=== PATIENT | male | born 1975 | race Caucasian/White ===

== ENCOUNTER 2017-09-18 12:11 | Emergency (ER) | payer MEDICAID, OTHER ==
[~2017-09-18] VITALS: Ht 172.7 cm; Wt 100.0 kg
[2017-09-18] MEDS ORDERED: silver nitrate applicator stick TP ONE (12:55)
[2017-09-18] MEDS ORDERED: oxymetazoline 15 ML nasal spray NS ONE (12:55)
[2017-09-18 13:58] LABS: BASOPHILS % (AUTO) 0.3 % (0-1); EOSINOPHILS # (AUTO) 0.2 X10'3 (0-0.9); HEMATOCRIT 28.2 % (42.0-52.0); HEMOGLOBIN 9.6 g/dl (14.0-17.9); LYMPHOCYTES # (AUTO) 0.7 X10'3 (1.1-4.8); LYMPHOCYTES % (AUTO) 13.5 % (21-51); MEAN CORPUSCULAR HEMOGLOBIN 31.3 PG (27.0-31.0); MEAN CORPUSCULAR HGB CONC 34.3 % (33.0-36.5); MEAN CORPUSCULAR VOLUME 91.3 FL (78-98); MEAN PLATELET VOLUME 6.7 FL (7.4-10.4); MONOCYTES # (AUTO) 0.3 X10'3 (0-0.9); NEUTROPHILS % (AUTO) 77.2 % (42-75); PLATELET COUNT 307 X10'3 (140-440); RED BLOOD COUNT 3.08 X10'6 (4.70-6.10); RED CELL DISTRIBUTION WIDTH 13.9 % (11.5-14.5); WHITE BLOOD COUNT 5.2 X10'3 (4.5-11.0)
[2017-09-18 14:12] LABS: ALANINE AMINOTRANSFERASE 34 U/L (12-78); ALBUMIN 3.8 G/DL (3.4-5.0); ALBUMIN/GLOBULIN RATIO 1.1 (1.1-1.5); ALKALINE PHOSPHATASE 56 IU/L (46-116); ANION GAP 10 (8-16); ASPARTATE AMINO TRANSFERASE 19 U/L (10-37); BILIRUBIN,TOTAL 0.4 MG/DL (0.1-1.0); BLOOD UREA NITROGEN 14 MG/DL (7-18); BUN/CREATININE RATIO 13.5 (5.4-32.0); CALCIUM 9.1 MG/DL (8.5-10.1); CHLORIDE 102 MMOL/L (99-107); CREATININE 1.04 MG/DL (0.60-1.10); GLUCOSE 233 MG/DL (70-104); POTASSIUM 4.2 MMOL/L (3.5-5.1); SODIUM 139 MMOL/L (135-145); TOTAL CARBON DIOXIDE 26.6 MMOL/L (24-32); TOTAL PROTEIN 7.4 G/DL (6.4-8.2); eGFR 78 ML/MIN
[2017-09-18 14:46] VITALS: BP 134/84
== END 2017-09-18 14:47 | disposition home or self-care (01) ==
LOC: ER 12:12
DX: R04.0 Epistaxis (principal)
CPT/HCPCS: 36415; 80053; 85025; 99284

== ENCOUNTER 2023-01-05 18:06 | Emergency (ER) | payer BC, MEDICAID, OTHER ==
[~2023-01-05] VITALS: Ht 170.2 cm; Wt 67.8 kg
[2023-01-05 19:05] VITALS: TEMP 98.4
[2023-01-05] MEDS ORDERED: normal saline 1000ML IV soln IV ONE (19:35)
[2023-01-05 20:24] LABS: BASOPHILS % (AUTO) 0.4 % (0-1); EOSINOPHILS # (AUTO) 0.1 X10'3 (0-0.9); EOSINOPHILS % (AUTO) 1.2 % (0-6); HEMATOCRIT 50.8 % (42.0-52.0); HEMOGLOBIN 17.1 g/dl (14.0-17.9); LYMPHOCYTES # (AUTO) 1.6 X10'3 (1.1-4.8); LYMPHOCYTES % (AUTO) 25.7 % (21-51); MEAN CORPUSCULAR HEMOGLOBIN 31.3 PG (27.0-31.0); MEAN CORPUSCULAR HGB CONC 33.7 g/dL (33.0-36.5); MEAN PLATELET VOLUME 7.4 FL (7.4-10.4); MONOCYTES # (AUTO) 0.3 X10'3 (0-0.9); MONOCYTES % (AUTO) 4.9 % (2-12); NEUTROPHILS # (AUTO) 4.1 X10'3 (1.8-7.7); NEUTROPHILS % (AUTO) 67.8 % (42-75); PLATELET COUNT 264 X10'3 (140-440); RED BLOOD COUNT 5.46 X10'6 (4.70-6.10); RED CELL DISTRIBUTION WIDTH 13.4 % (11.5-14.5); WHITE BLOOD COUNT 6.1 X10'3 (4.5-11.0)
[2023-01-05 20:37] LABS: ALANINE AMINOTRANSFERASE 32 U/L (12-78); ALBUMIN 4.1 G/DL (3.4-5.0); ALBUMIN/GLOBULIN RATIO 1.1 (1.1-1.5); ALKALINE PHOSPHATASE 78 IU/L (46-116); ANION GAP 16 (8-16); ASPARTATE AMINO TRANSFERASE 17 U/L (10-37); BILIRUBIN,TOTAL 0.7 MG/DL (0.1-1.0); BLOOD UREA NITROGEN 21 MG/DL (7-18); BUN/CREATININE RATIO 18.6 (10.0-20.0); CALCIUM 9.7 MG/DL (8.5-10.1); CHLORIDE 95 MMOL/L (99-107); CREATININE 1.13 MG/DL (0.60-1.10); GLUCOSE 393 MG/DL (70-104); LIPASE 937 U/L (73-393); POTASSIUM 4.6 MMOL/L (3.5-5.1); SODIUM 133 MMOL/L (135-145); TOTAL CARBON DIOXIDE 21.7 MMOL/L (24-32); eCRCL 75 ML/MIN; eGFR 69 ML/MIN
[2023-01-05 20:50] LABS: BILIRUBIN,URINE NEGATIVE (Neg); CLARITY,URINE CLEAR (Clear); COLOR,URINE YELLOW (Yellow); GLUCOSE, URINE >=1000 mg/dl (Neg); KETONES,URINE >=80 mg/dl (Neg); LEUKOCYTE ESTERASE ,URINE NEGATIVE (Neg); NITRITES, URINE NEGATIVE (Neg); OCCULT BLOOD,URINE NEGATIVE (Neg); PH,URINE 5.5 (4.8-8.0); PROTEIN,URINE NEGATIVE (Neg); UROBILINOGEN,URINE 0.2 E.U/dL (0.2-1.0)
[2023-01-05 20:56] LABS: UA COLLECTION TYPE CLN CATCH MIDSTREAM
[2023-01-05 20:57] LABS: BACTERIA,URINE NONE SEEN /HPF (Neg); RBC,URINE 0-2 /HPF (0-2); SQUAMOUS EPITHELIAL CELL,UR FEW /LPF (FEW); WBC,URINE 0-4 /HPF (0-4)
[2023-01-05] MEDS ORDERED: METF-438 PO (21:44)
[2023-01-05 21:57] VITALS: BP 122/86; PULSE 86; RESP 18; O2SAT 100
== END 2023-01-05 21:58 | disposition home or self-care (01) ==
LOC: ER 18:07
DX: E11.65 Type 2 diabetes mellitus with hyperglycemia (principal); Z79.899 Other long term (current) drug therapy
CPT/HCPCS: 36415; 80053; 81001; 82948; 83690; 85025; 96360; 99285; J7030

== ENCOUNTER 2023-07-23 16:50 | Inpatient (IN) | payer BC ==
[~2023-07-23] VITALS: Ht 177.8 cm; Wt 54.0 kg
[~2023-07-23 16:50] MED LIST: METF-438 PO
[2023-07-23 17:32] LABS: BASOPHILS % (AUTO) 0.2 % (0-1); EOSINOPHILS % (AUTO) 0 % (0-6); HEMATOCRIT 43.1 % (42.0-52.0); HEMOGLOBIN 13.7 g/dl (14.0-17.9); LYMPHOCYTES # (AUTO) 0.9 X10'3 (1.1-4.8); LYMPHOCYTES % (AUTO) 5.8 % (21-51); MEAN CORPUSCULAR HEMOGLOBIN 32.8 PG (27.0-31.0); MEAN CORPUSCULAR HGB CONC 31.7 g/dL (33.0-36.5); MEAN CORPUSCULAR VOLUME 103.2 FL (78-98); MEAN PLATELET VOLUME 7.7 FL (7.4-10.4); MONOCYTES # (AUTO) 1.2 X10'3 (0-0.9); MONOCYTES % (AUTO) 7.9 % (2-12); NEUTROPHILS # (AUTO) 13.4 X10'3 (1.8-7.7); NEUTROPHILS % (AUTO) 86.1 % (42-75); PLATELET COUNT 297 X10'3 (140-440); RED BLOOD COUNT 4.18 X10'6 (4.70-6.10); RED CELL DISTRIBUTION WIDTH 15.2 % (11.5-14.5); WHITE BLOOD COUNT 15.6 X10'3 (4.5-11.0)
[2023-07-23 18:53] LABS: ALANINE AMINOTRANSFERASE 23 U/L (12-78); ALBUMIN 3.2 G/DL (3.4-5.0); ALBUMIN/GLOBULIN RATIO 0.8 (1.1-1.5); ALKALINE PHOSPHATASE 91 IU/L (46-116); ASPARTATE AMINO TRANSFERASE 19 U/L (10-37); BILIRUBIN,TOTAL 0.5 MG/DL (0.1-1.0); BLOOD UREA NITROGEN 48 MG/DL (7-18); BUN/CREATININE RATIO 28.4 (10.0-20.0); CALCIUM 8.7 MG/DL (8.5-10.1); CHLORIDE 105 MMOL/L (99-107); CREATININE 1.69 MG/DL (0.60-1.10); ETHANOL < 10 MG/DL (<10); POTASSIUM 4.5 MMOL/L (3.5-5.1); SODIUM 144 MMOL/L (135-145); TOTAL PROTEIN 7.4 G/DL (6.4-8.2); eCRCL 40 ML/MIN; eGFR 43 ML/MIN
[2023-07-23] MEDS: normal saline 1000ML IV soln IVB ONE (18:58)
[2023-07-23 19:01] LABS: GLUCOSE 466 MG/DL (70-104)
[2023-07-23 19:04] LABS: ANION GAP 34 (8-16)
[2023-07-23 19:08] LABS: TOTAL CARBON DIOXIDE < 5 MMOL/L (24-32)
[2023-07-23] MEDS ORDERED: Neutra Phos packet PO PRN (19:15)
[2023-07-23] MEDS ORDERED: normal saline 1000ml 1,000 ML IV SCH (19:15)
[2023-07-23] MEDS ORDERED: insulin regular, human U-100 3ml vial - multi-dose IV PRN (19:15)
[2023-07-23] MEDS ORDERED: potassium CL 20mEq in D5-1/2NS 1,000 ML IV PRN (19:15)
[2023-07-23] MEDS ORDERED: sodium bicarbonate (8.4%) inj. 100 MEQ in dextrose 5% water 500ml 500 ML IV PRN (19:15)
[2023-07-23] MEDS ORDERED: potassium Cl 20 mEq SR tablet PO PRN ×3 (19:15→19:40)
[2023-07-23] MEDS ORDERED: potassium Cl 40MEQ/1/2NS 520ml 520 ML IV PRN ×3 (19:15→19:40)
[2023-07-23] MEDS ORDERED: sodium bicarbonate (8.4%) inj. 50 MEQ in dextrose 5% water 500ml 250 ML IV PRN ×2 (19:15→19:40)
[2023-07-23] MEDS ORDERED: sodium phosphate inj. 15 MMOL in dextrose 5%-water 250 ML IV PRN (19:15)
[2023-07-23] MEDS ORDERED: insulin regular, human 10 units/0.1 ml syringe IV PRN (19:25)
[2023-07-23] MEDS: thiamine 100mg/ml 2ml inj. IV ONE (19:35)
[2023-07-23] MEDS ORDERED: acetaminophen 325mg tablet PO PRN ×2 (19:35)
[2023-07-23] MEDS ORDERED: ondansetron/PF 4mg/2ml inj IV PRN (19:35)
[2023-07-23] MEDS: normal saline 1000ml 1,000 ML IV SCH ×2 (19:35→20:03)
[2023-07-23] MEDS: insulin regular, human 10 units/0.1 ml syringe IV ONE ×2 (19:36→21:16)
[2023-07-23] MEDS: Insulin Reg/NS 100units/100mL 100 ML IV SCH ×2 (19:37→21:14)
[2023-07-23 19:57] LABS: ABG BASE EXCESS -29.7 mmol/L (-2.0-2.0); ABG HCO3 2.5 mmol/L (22.0-26.0); ABG OXYGEN SATURATION 96.3 % (94-97); ABG PCO2 (T) 13.6 mmHg (35.0-48.0); ABG PH (T) 6.876 (7.340-7.440); ABG PO2 (T) 133.9 mmHg (75.0-100.0); FCOHb 0.3 % (0.0-3.9); FHHb 3.7 % (0.0-5.0); FMetHb 0.1 % (0.0-1.5); FO2Hb 95.9 % (94-97); MODE ROOM AIR; PATIENT TEMPERATURE 36.9; TOTAL HEMOGLOBIN 14.8 G/dl (14.0-17.9)
[2023-07-23] MEDS ORDERED: K and/or MAG REPLACEMENT MC SCH (20:00)
[2023-07-23] MEDS: K and/or MAG REPLACEMENT MC SCH (20:00)
[2023-07-23 20:07] LABS: ALBUMIN 3.4 G/DL (3.4-5.0); BLOOD UREA NITROGEN 51 MG/DL (7-18); BUN/CREATININE RATIO 29.5 (10.0-20.0); CALCIUM 8.7 MG/DL (8.5-10.1); CHLORIDE 106 MMOL/L (99-107); CREATININE 1.73 MG/DL (0.60-1.10); PHOSPHORUS 8.9 MG/DL (2.3-4.5); POTASSIUM 4.5 MMOL/L (3.5-5.1); SODIUM 145 MMOL/L (135-145); eCRCL 39 ML/MIN; eGFR 42 ML/MIN
[2023-07-23 20:13] LABS: ANION GAP 34 (8-16)
[2023-07-23 20:16] LABS: GLUCOSE 471 MG/DL (70-104); TOTAL CARBON DIOXIDE < 5 MMOL/L (24-32)
[2023-07-23] MEDS: insulin regular, human U-100 3ml vial - multi-dose IV PRN (21:16)
[2023-07-23 23:25] LABS: BILIRUBIN,URINE NEGATIVE (Neg); CLARITY,URINE CLEAR (Clear); COLOR,URINE YELLOW (Yellow); GLUCOSE, URINE >=1000 mg/dl (Neg); KETONES,URINE >=80 mg/dl (Neg); LEUKOCYTE ESTERASE ,URINE NEGATIVE (Neg); NITRITES, URINE NEGATIVE (Neg); OCCULT BLOOD,URINE MODERATE (Neg); PH,URINE 5.5 (4.8-8.0); PROTEIN,URINE 30 mg/dl (Neg); UROBILINOGEN,URINE 0.2 E.U/dL (0.2-1.0)
[2023-07-23 23:27] LABS: ALBUMIN 3.4 G/DL (3.4-5.0); BLOOD UREA NITROGEN 50 MG/DL (7-18); BUN/CREATININE RATIO 29.1 (10.0-20.0); CALCIUM 8.8 MG/DL (8.5-10.1); CHLORIDE 108 MMOL/L (99-107); CREATININE 1.72 MG/DL (0.60-1.10); GLUCOSE 369 MG/DL (70-104); POTASSIUM 3.6 MMOL/L (3.5-5.1); SODIUM 148 MMOL/L (135-145); eCRCL 40 ML/MIN; eGFR 42 ML/MIN
[2023-07-23 23:30] LABS: UA COLLECTION TYPE CLN CATCH MIDSTREAM
[2023-07-23 23:32] LABS: COARSE GRANULAR CAST 0-3 /LPF (NEGATIVE); MUCUS STRANDS NONE SEEN /LPF (Neg); SQUAMOUS EPITHELIAL CELL,UR NONE SEEN /LPF (FEW)
[2023-07-23 23:34] LABS: BACTERIA,URINE FEW /HPF (Neg); RBC,URINE 0-2 /HPF (0-2); WBC,URINE 0-4 /HPF (0-4)
[2023-07-23 23:34] LABS: ANION GAP 35 (8-16)
[2023-07-23 23:41] LABS: URINE AMPHETAMINE SCREEN NEGATIVE (Neg); URINE BARBITUATE SCREEN NEGATIVE (Neg); URINE BENZODIAZEPINES SCREEN NEGATIVE (Neg); URINE CANNABINOID SCREEN NEGATIVE (Neg); URINE COCAINE SCREEN NEGATIVE (Neg); URINE METHADONE SCREEN NEGATIVE (Neg); URINE OPIATE SCREEN NEGATIVE (Neg); URINE PHENCYCLIDINE SCREEN NEGATIVE (Neg)
[2023-07-24] MEDS: heparin, porcine 5000 units/ml vial SQ SCH (00:17)
[2023-07-24] MEDS: sodium bicarbonate (8.4%) inj. 100 MEQ in dextrose 5% water 500ml 500 ML IV PRN (00:29)
[2023-07-24] MEDS: dextrose 5%-1/2 normal saline 1,000 ML IV ONE (01:27)
[2023-07-24 02:02] LABS: ABG BASE EXCESS -20.4 mmol/L (-2.0-2.0); ABG HCO3 6.3 mmol/L (22.0-26.0); ABG OXYGEN SATURATION 96.9 % (94-97); ABG PCO2 (T) 18.4 mmHg (35.0-48.0); ABG PH (T) 7.153 (7.340-7.440); ABG PO2 (T) 129.7 mmHg (75.0-100.0); ALLEN'S TEST Modified; FCOHb 0.3 % (0.0-3.9); FHHb 3.1 % (0.0-5.0); FMetHb 0.3 % (0.0-1.5); FO2Hb 96.3 % (94-97); MODE ROOM AIR; TOTAL HEMOGLOBIN 13.8 G/dl (14.0-17.9)
[2023-07-24 02:18] LABS: ANION GAP 29 (8-16); BLOOD UREA NITROGEN 47 MG/DL (7-18); BUN/CREATININE RATIO 29.7 (10.0-20.0); CALCIUM 8.2 MG/DL (8.5-10.1); CHLORIDE 111 MMOL/L (99-107); CREATININE 1.58 MG/DL (0.60-1.10); GLUCOSE 214 MG/DL (70-104); PHOSPHORUS 3.9 MG/DL (2.3-4.5); SODIUM 149 MMOL/L (135-145); eCRCL 43 ML/MIN; eGFR 47 ML/MIN
[2023-07-24 02:24] LABS: POTASSIUM 3.4 MMOL/L (3.5-5.1)
[2023-07-24] MEDS: potassium CL 20mEq in D5-1/2NS 1,000 ML IV PRN (02:39)
[2023-07-24 09:29] LABS: ALANINE AMINOTRANSFERASE 27 U/L (12-78); ALBUMIN 2.9 G/DL (3.4-5.0); ALBUMIN/GLOBULIN RATIO 0.9 (1.1-1.5); ALKALINE PHOSPHATASE 73 IU/L (46-116); ANION GAP 16 (8-16); ASPARTATE AMINO TRANSFERASE 20 U/L (10-37); BILIRUBIN,TOTAL 0.4 MG/DL (0.1-1.0); BLOOD UREA NITROGEN 44 MG/DL (7-18); BUN/CREATININE RATIO 30.8 (10.0-20.0); CALCIUM 8.2 MG/DL (8.5-10.1); CHLORIDE 115 MMOL/L (99-107); CREATININE 1.43 MG/DL (0.60-1.10); GLUCOSE 154 MG/DL (70-104); POTASSIUM 3.2 MMOL/L (3.5-5.1); SODIUM 149 MMOL/L (135-145); TOTAL CARBON DIOXIDE 17.6 MMOL/L (24-32); eCRCL 48 ML/MIN; eGFR 53 ML/MIN
[2023-07-24] MEDS: vancomycin/NS 1 GM ADD-VANTAGE 250 ML IV STA (09:39)
[2023-07-24 13:19] LABS: ALBUMIN 3.1 G/DL (3.4-5.0); ANION GAP 13 (8-16); BLOOD UREA NITROGEN 39 MG/DL (7-18); BUN/CREATININE RATIO 28.7 (10.0-20.0); CALCIUM 8.3 MG/DL (8.5-10.1); CHLORIDE 117 MMOL/L (99-107); CREATININE 1.36 MG/DL (0.60-1.10); GLUCOSE 165 MG/DL (70-104); SODIUM 149 MMOL/L (135-145); TOTAL CARBON DIOXIDE 18.8 MMOL/L (24-32); eCRCL 50 ML/MIN; eGFR 56 ML/MIN
[2023-07-24 13:23] LABS: POTASSIUM 3.5 MMOL/L (3.5-5.1)
[2023-07-24] MEDS ORDERED: SEMA0.258 SQ (14:16)
[2023-07-24] MEDS ORDERED: EMPA25TA PO (14:16)
[2023-07-24 14:34] LABS: HEMOGLOBIN A1C > 12.0 % (4.5-6.2)
[2023-07-24 14:38] LABS: THYROID STIMULATING HORMONE 0.53 ulU/ml (0.34-4.50)
[2023-07-24] MEDS ORDERED: glucagon, human recombinant 1mg kit SUBCUT PRN (18:30)
[2023-07-24] MEDS ORDERED: DEXTROSE 15 GM of carb/4 tabs (each vial/BOTTLE has 4 tablets) PO PRN ×2 (18:30)
[2023-07-24] MEDS ORDERED: dextrose 50%-water 50ml dispensing syringe IV PRN ×2 (18:30)
[2023-07-24] MEDS: MESSAGE TO PHARMACY PO ONE (18:47)
[2023-07-24 19:32] LABS: ALBUMIN 2.6 G/DL (3.4-5.0); ANION GAP 10 (8-16); BLOOD UREA NITROGEN 29 MG/DL (7-18); BUN/CREATININE RATIO 24.6 (10.0-20.0); CALCIUM 7.4 MG/DL (8.5-10.1); CHLORIDE 113 MMOL/L (99-107); CREATININE 1.18 MG/DL (0.60-1.10); GLUCOSE 221 MG/DL (70-104); PHOSPHORUS 1.3 MG/DL (2.3-4.5); POTASSIUM 3.7 MMOL/L (3.5-5.1); SODIUM 147 MMOL/L (135-145); TOTAL CARBON DIOXIDE 23.7 MMOL/L (24-32); eCRCL 58 ML/MIN; eGFR 66 ML/MIN
[2023-07-24] MEDS: insulin glargine (Lantus) pen - multi-dose SQ SCH (19:40)
[2023-07-24] MEDS: sodium phosphate inj. 30 MMOL in dextrose 5%-water 250 ML IV PRN (20:19)
[2023-07-24 22:40] VITALS: BP 105/67; PULSE 92; RESP 16; TEMP 98; O2SAT 99
[2023-07-24 23:40] VITALS: RESP 16; O2SAT 96
[2023-07-25] VITALS (7 sets, daily range): BP systolic 92–120; BP diastolic 58–71; PULSE 65–109; RESP 10–20; TEMP 97–98.9; O2SAT 91–100
[2023-07-25] MEDS: sodium chloride 0.45% 1,000 ML IV SCH (04:37)
[2023-07-25 06:14] LABS: BASOPHILS % (AUTO) 0.2 % (0-1); EOSINOPHILS % (AUTO) 0 % (0-6); HEMATOCRIT 36.7 % (42.0-52.0); HEMOGLOBIN 12.6 g/dl (14.0-17.9); LYMPHOCYTES # (AUTO) 0.6 X10'3 (1.1-4.8); LYMPHOCYTES % (AUTO) 5.2 % (21-51); MEAN CORPUSCULAR HEMOGLOBIN 32.7 PG (27.0-31.0); MEAN CORPUSCULAR HGB CONC 34.3 g/dL (33.0-36.5); MEAN CORPUSCULAR VOLUME 95.3 FL (78-98); MEAN PLATELET VOLUME 6.9 FL (7.4-10.4); MONOCYTES # (AUTO) 0.6 X10'3 (0-0.9); MONOCYTES % (AUTO) 5.2 % (2-12); NEUTROPHILS # (AUTO) 10.9 X10'3 (1.8-7.7); NEUTROPHILS % (AUTO) 89.4 % (42-75); PLATELET COUNT 130 X10'3 (140-440); RED BLOOD COUNT 3.85 X10'6 (4.70-6.10); RED CELL DISTRIBUTION WIDTH 14.6 % (11.5-14.5); WHITE BLOOD COUNT 12.1 X10'3 (4.5-11.0)
[2023-07-25 08:57] LABS: ALANINE AMINOTRANSFERASE 21 U/L (12-78); ALBUMIN 2.9 G/DL (3.4-5.0); ALKALINE PHOSPHATASE 69 IU/L (46-116); ANION GAP 11 (8-16); ASPARTATE AMINO TRANSFERASE 16 U/L (10-37); BILIRUBIN,TOTAL 0.3 MG/DL (0.1-1.0); BLOOD UREA NITROGEN 18 MG/DL (7-18); BUN/CREATININE RATIO 22.5 (10.0-20.0); CALCIUM 7.9 MG/DL (8.5-10.1); CHLORIDE 112 MMOL/L (99-107); GLUCOSE 79 MG/DL (70-104); SODIUM 148 MMOL/L (135-145); TOTAL CARBON DIOXIDE 25.2 MMOL/L (24-32); TOTAL PROTEIN 5.8 G/DL (6.4-8.2); eCRCL 85 ML/MIN; eGFR > 90 ML/MIN
[2023-07-25 08:58] LABS: POTASSIUM 2.3 MMOL/L (3.5-5.1)
[2023-07-25] MEDS ORDERED: Potassium Cl inj 20 MEQ in dextrose 5%-water 990 ML IV SCH (09:25)
[2023-07-25] MEDS: vancomycin/NS 1 GM ADD-VANTAGE 250 ML IV SCH ×2 (10:06→20:30)
[2023-07-25] MEDS: potassium Cl 40MEQ/1/2NS 520ml 520 ML IV PRN (10:14)
[2023-07-25] MEDS: CefTRIAXone/D5W-Rocephin 1gm 50 ML IV ONE (12:57)
[2023-07-25] MEDS ORDERED: iohexol 300mg/ml 100ml inj. ONE (15:19)
[2023-07-25] MEDS: POTASSIUM Cl 20eq-D5W 1000mL 1,000 ML IV SCH (17:34)
[2023-07-25] MEDS: MESSAGE TO NURSING PO NR (17:34)
[2023-07-25] MEDS: insulin Lispro (HumaLOG) vial - multi-dose SQ SCH (19:08)
[2023-07-25] MEDS: heparin, porcine 5000 units/ml vial SQ SCH (20:30)
[2023-07-25] MEDS: calcium carbonate 500mg chew tablet PO PRN (21:45)
[2023-07-26] VITALS (8 sets, daily range): BP systolic 90–94; BP diastolic 59–70; PULSE 63–82; RESP 14–20; TEMP 98–98.6; O2SAT 95–99
[2023-07-26 05:54] LABS: BASOPHILS % (AUTO) 0.1 % (0-1); EOSINOPHILS % (AUTO) 0.1 % (0-6); HEMATOCRIT 38.9 % (42.0-52.0); HEMOGLOBIN 13.2 g/dl (14.0-17.9); LYMPHOCYTES % (AUTO) 10.8 % (21-51); MEAN CORPUSCULAR HEMOGLOBIN 32.2 PG (27.0-31.0); MEAN CORPUSCULAR HGB CONC 33.8 g/dL (33.0-36.5); MEAN CORPUSCULAR VOLUME 95.1 FL (78-98); MEAN PLATELET VOLUME 6.3 FL (7.4-10.4); MONOCYTES # (AUTO) 0.4 X10'3 (0-0.9); MONOCYTES % (AUTO) 4.1 % (2-12); NEUTROPHILS # (AUTO) 8.2 X10'3 (1.8-7.7); NEUTROPHILS % (AUTO) 84.9 % (42-75); PLATELET COUNT 114 X10'3 (140-440); RED BLOOD COUNT 4.09 X10'6 (4.70-6.10); RED CELL DISTRIBUTION WIDTH 14.4 % (11.5-14.5); WHITE BLOOD COUNT 9.6 X10'3 (4.5-11.0)
[2023-07-26 06:28] LABS: ALANINE AMINOTRANSFERASE 26 U/L (12-78); ALBUMIN 2.8 G/DL (3.4-5.0); ALKALINE PHOSPHATASE 77 IU/L (46-116); ANION GAP 7 (8-16); ASPARTATE AMINO TRANSFERASE 21 U/L (10-37); BILIRUBIN,TOTAL 0.4 MG/DL (0.1-1.0); BLOOD UREA NITROGEN 13 MG/DL (7-18); BUN/CREATININE RATIO 23.6 (10.0-20.0); CALCIUM 8.4 MG/DL (8.5-10.1); CHLORIDE 108 MMOL/L (99-107); CREATININE 0.55 MG/DL (0.60-1.10); GLUCOSE 149 MG/DL (70-104); PHOSPHORUS 2.5 MG/DL (2.3-4.5); SODIUM 144 MMOL/L (135-145); TOTAL CARBON DIOXIDE 29.3 MMOL/L (24-32); TOTAL PROTEIN 5.7 G/DL (6.4-8.2); eCRCL 124 ML/MIN; eGFR > 90 ML/MIN
[2023-07-26 06:34] LABS: POTASSIUM 2.7 MMOL/L (3.5-5.1)
[2023-07-26 07:18] LABS: HIV ANTIBODY 1&2 RAPID NON-REACTIVE (Neg)
[2023-07-26] MEDS: potassium Cl 20 mEq SR tablet PO PRN ×2 (07:24→20:34)
[2023-07-26] MEDS: CefTRIAXone 2gm/D5W 50ml BAG 50 ML IV SCH (07:27)
[2023-07-26] MEDS ORDERED: CefTRIAXone/D5W-Rocephin 1gm 50 ML IV SCH (08:00)
[2023-07-26] MEDS: pantoprazole 40mg Tablet.DR PO SCH (11:19)
[2023-07-26] MEDS: potassium Cl 20 mEq SR tablet PO SCH (16:48)
[2023-07-26] MEDS ORDERED: GADOTERATE MEGLUMINE 7.5 MMOL/15 ML VIAL IV ONE (19:18)
[2023-07-26] MEDS: VANCOmycin 1250MG/NS 250ml Bag 250 ML IV SCH (20:31)
[2023-07-27] VITALS (8 sets, daily range): BP systolic 89–127; BP diastolic 61–71; PULSE 72–92; RESP 15–20; TEMP 97.3–98.7; O2SAT 94–100
[2023-07-27 06:50] LABS: BASOPHILS % (AUTO) 0 % (0-1); EOSINOPHILS % (AUTO) 0.1 % (0-6); HEMOGLOBIN 11.9 g/dl (14.0-17.9); LYMPHOCYTES # (AUTO) 0.9 X10'3 (1.1-4.8); LYMPHOCYTES % (AUTO) 12.8 % (21-51); MEAN CORPUSCULAR HEMOGLOBIN 32.5 PG (27.0-31.0); MEAN CORPUSCULAR VOLUME 95.7 FL (78-98); MEAN PLATELET VOLUME 6.7 FL (7.4-10.4); MONOCYTES # (AUTO) 0.3 X10'3 (0-0.9); MONOCYTES % (AUTO) 4.1 % (2-12); NEUTROPHILS # (AUTO) 5.6 X10'3 (1.8-7.7); PLATELET COUNT 97 X10'3 (140-440); RED BLOOD COUNT 3.65 X10'6 (4.70-6.10); RED CELL DISTRIBUTION WIDTH 14.1 % (11.5-14.5); WHITE BLOOD COUNT 6.7 X10'3 (4.5-11.0)
[2023-07-27 07:18] LABS: ALANINE AMINOTRANSFERASE 27 U/L (12-78); ALBUMIN 2.5 G/DL (3.4-5.0); ALBUMIN/GLOBULIN RATIO 0.9 (1.1-1.5); ALKALINE PHOSPHATASE 78 IU/L (46-116); ANION GAP 5 (8-16); ASPARTATE AMINO TRANSFERASE 24 U/L (10-37); BILIRUBIN,TOTAL 0.5 MG/DL (0.1-1.0); BLOOD UREA NITROGEN 14 MG/DL (7-18); BUN/CREATININE RATIO 26.9 (10.0-20.0); CHLORIDE 104 MMOL/L (99-107); CREATININE 0.52 MG/DL (0.60-1.10); GLUCOSE 223 MG/DL (70-104); MAGNESIUM 1.8 MG/DL (1.5-2.4); SODIUM 140 MMOL/L (135-145); TOTAL CARBON DIOXIDE 30.9 MMOL/L (24-32); TOTAL PROTEIN 5.3 G/DL (6.4-8.2); eCRCL 131 ML/MIN; eGFR > 90 ML/MIN
[2023-07-27 12:01] LABS: LIPASE 21 U/L (16-77)
[2023-07-27] MEDS: ceFAZolin/D5W- 1GM premix 50 ML IV SCH (15:21)
[2023-07-28] VITALS (9 sets, daily range): BP systolic 90–106; BP diastolic 52–74; PULSE 63–86; RESP 14–21; TEMP 97.3–98; O2SAT 96–100
[2023-07-28 05:47] LABS: BASOPHILS % (AUTO) 0.2 % (0-1); EOSINOPHILS % (AUTO) 0.2 % (0-6); HEMATOCRIT 36.5 % (42.0-52.0); HEMOGLOBIN 12.5 g/dl (14.0-17.9); LYMPHOCYTES % (AUTO) 17.7 % (21-51); MEAN CORPUSCULAR HEMOGLOBIN 32.3 PG (27.0-31.0); MEAN CORPUSCULAR HGB CONC 34.1 g/dL (33.0-36.5); MEAN CORPUSCULAR VOLUME 94.7 FL (78-98); MEAN PLATELET VOLUME 6.7 FL (7.4-10.4); MONOCYTES # (AUTO) 0.4 X10'3 (0-0.9); MONOCYTES % (AUTO) 6.2 % (2-12); NEUTROPHILS # (AUTO) 4.3 X10'3 (1.8-7.7); NEUTROPHILS % (AUTO) 75.7 % (42-75); PLATELET COUNT 111 X10'3 (140-440); RED BLOOD COUNT 3.85 X10'6 (4.70-6.10); RED CELL DISTRIBUTION WIDTH 13.9 % (11.5-14.5); WHITE BLOOD COUNT 5.7 X10'3 (4.5-11.0)
[2023-07-28 06:00] LABS: ALANINE AMINOTRANSFERASE 27 U/L (12-78); ALBUMIN 2.5 G/DL (3.4-5.0); ALBUMIN/GLOBULIN RATIO 0.8 (1.1-1.5); ALKALINE PHOSPHATASE 73 IU/L (46-116); ANION GAP 6 (8-16); ASPARTATE AMINO TRANSFERASE 17 U/L (10-37); BILIRUBIN,TOTAL 0.4 MG/DL (0.1-1.0); BLOOD UREA NITROGEN 18 MG/DL (7-18); BUN/CREATININE RATIO 35.3 (10.0-20.0); CALCIUM 8.7 MG/DL (8.5-10.1); CHLORIDE 103 MMOL/L (99-107); CREATININE 0.51 MG/DL (0.60-1.10); GLUCOSE 86 MG/DL (70-104); MAGNESIUM 2.1 MG/DL (1.5-2.4); SODIUM 140 MMOL/L (135-145); TOTAL CARBON DIOXIDE 30.7 MMOL/L (24-32); TOTAL PROTEIN 5.5 G/DL (6.4-8.2); eCRCL 134 ML/MIN; eGFR > 90 ML/MIN
[2023-07-28] MEDS ORDERED: VANCOMYCIN LEVEL IV ONE (08:30)
[2023-07-28] MEDS: magnesium hydroxide 30ml (MOM) UD suspension PO ONE ×2 (21:43→21:55)
[2023-07-29] VITALS (8 sets, daily range): BP systolic 98–118; BP diastolic 56–84; PULSE 60–95; RESP 15–19; TEMP 97–98.3; O2SAT 91–100
[2023-07-29 05:52] LABS: ALANINE AMINOTRANSFERASE 33 U/L (12-78); ALBUMIN 2.7 G/DL (3.4-5.0); ALBUMIN/GLOBULIN RATIO 0.9 (1.1-1.5); ALKALINE PHOSPHATASE 85 IU/L (46-116); ANION GAP 4 (8-16); ASPARTATE AMINO TRANSFERASE 41 U/L (10-37); BILIRUBIN,TOTAL 0.4 MG/DL (0.1-1.0); BLOOD UREA NITROGEN 21 MG/DL (7-18); BUN/CREATININE RATIO 31.3 (10.0-20.0); CALCIUM 8.3 MG/DL (8.5-10.1); CHLORIDE 101 MMOL/L (99-107); CREATININE 0.67 MG/DL (0.60-1.10); GLUCOSE 228 MG/DL (70-104); MAGNESIUM 2.3 MG/DL (1.5-2.4); POTASSIUM 4.1 MMOL/L (3.5-5.1); SODIUM 139 MMOL/L (135-145); TOTAL CARBON DIOXIDE 33.7 MMOL/L (24-32); TOTAL PROTEIN 5.8 G/DL (6.4-8.2); eCRCL 102 ML/MIN; eGFR > 90 ML/MIN
[2023-07-29 05:58] LABS: BASOPHILS % (AUTO) 0.1 % (0-1); EOSINOPHILS % (AUTO) 0.5 % (0-6); HEMOGLOBIN 13.2 g/dl (14.0-17.9); LYMPHOCYTES # (AUTO) 1.2 X10'3 (1.1-4.8); LYMPHOCYTES % (AUTO) 27.8 % (21-51); MEAN CORPUSCULAR HEMOGLOBIN 32.6 PG (27.0-31.0); MEAN CORPUSCULAR HGB CONC 33.8 g/dL (33.0-36.5); MEAN CORPUSCULAR VOLUME 96.4 FL (78-98); MEAN PLATELET VOLUME 7.2 FL (7.4-10.4); MONOCYTES # (AUTO) 0.5 X10'3 (0-0.9); MONOCYTES % (AUTO) 12.2 % (2-12); NEUTROPHILS # (AUTO) 2.5 X10'3 (1.8-7.7); NEUTROPHILS % (AUTO) 59.4 % (42-75); PLATELET COUNT 139 X10'3 (140-440); RED BLOOD COUNT 4.05 X10'6 (4.70-6.10); WHITE BLOOD COUNT 4.2 X10'3 (4.5-11.0)
[2023-07-29 10:04] LABS: AFP,SERUM, TUMOR MARKER <1.8 ng/mL (0.0-6.9); CARBOHYDRATE ANTIGEN 19-9 2638 U/mL (0-35); CARCINOEMBRYONIC ANTIGEN 24.5 ng/mL (0.0-4.7); HBSAG SCREEN Negative (Negative); HEP A AB, IGM Negative (Negative); HEP B CORE AB, IGM Negative (Negative); HEPATITIS C VIRUS ANTIBODY Non Reactive (Non Reactive)
[2023-07-29] MEDS ORDERED: NEED-136 SUBCUT (13:28)
[2023-07-29] MEDS ORDERED: INSU100I52 SQ (13:28)
[2023-07-29] MEDS ORDERED: INSU300I3 SQ (13:28)
[2023-07-29] MEDS: magnesium hydroxide 30ml (MOM) UD suspension PO PRN (17:53)
[2023-07-30 08:00] VITALS: RESP 22; O2SAT 97
== END 2023-07-30 12:30 | disposition home or self-care (01) | DRG 871 ==
LOC: ER 16:51 → ED HOLD 19:38 → EDBEDREQ 07-24 21:36 → EDBEDREQSVC 07-24 21:36 → PCU 3S 07-24 22:41
PROVIDERS: ADMIT Internal Medicine Critical Care Medicine; ATTEND Internal Medicine Critical Care Medicine
PROC: BW251ZZ Computerized Tomography (CT Scan) of Chest, Abdomen and Pelvis using Low Osmolar Contrast (ICD-10-PCS; principal; 2023-07-25)
PROC: 05HB33Z Insertion of Infusion Device into Right Basilic Vein, Percutaneous Approach (ICD-10-PCS; 2023-07-30)
DX: A41.01 Sepsis due to Methicillin susceptible Staphylococcus aureus (principal); E11.00 Type 2 diabetes mellitus with hyperosmolarity without nonketotic hyperglycemic-hyperosmolar coma (NKHHC); E11.10 Type 2 diabetes mellitus with ketoacidosis without coma; G93.41 Metabolic encephalopathy; N17.0 Acute kidney failure with tubular necrosis; R65.21 Severe sepsis with septic shock; E87.1 Hypo-osmolality and hyponatremia; E44.1 Mild protein-calorie malnutrition; Z68.1 Body mass index [BMI] 19.9 or less, adult; E87.8 Other disorders of electrolyte and fluid balance, not elsewhere classified; E87.6 Hypokalemia; D53.9 Nutritional anemia, unspecified; N18.30 Chronic kidney disease, stage 3 unspecified; K86.89 Other specified diseases of pancreas; G89.29 Other chronic pain; E11.22 Type 2 diabetes mellitus with diabetic chronic kidney disease; Z79.84 Long term (current) use of oral hypoglycemic drugs
CPT/HCPCS: 36410; 36415; 36600; 70450; 71045; 71260; 74177; 74183; 76942; 80048; 80053; 80074; 80305; 80320; 81001; 82103; 82140; 82378; 82607; 82803; 82948; 83036; 83605; 83690; 83735; 84100; 84145; 84443; 84484; 85018; 85025; 86301; 86304; 86592; 86703; 87040; 87077; 87081; 87186; 93005; 93306; 97116; 97161; 97530; 99285; A4349; A9575; C1751; G0378; J0690; J0696; J1644; J1815; J3370; J3411; J3480; J3490; J7030; J7040; J7060; Q9967

== ENCOUNTER 2023-11-09 15:16 | Emergency (ER) | payer BC ==
[~2023-11-09] VITALS: Ht 167.6 cm; Wt 68.2 kg
[~2023-11-09 15:16] MED LIST changes: +EMPA25TA PO; +INSU100I52 SQ; +INSU300I3 SQ; -METF-438 PO; +NEED-136 SUBCUT; +SEMA0.258 SQ
[2023-11-09 18:00] VITALS: TEMP 98.2
[2023-11-09] MEDS: normal saline 1000ml 1,000 ML IVB ONE ×2 (18:14→19:39)
[2023-11-09 18:33] LABS: BASOPHILS % (AUTO) 0.1 % (0-1); EOSINOPHILS % (AUTO) 0.1 % (0-6); HEMATOCRIT 40.8 % (42.0-52.0); HEMOGLOBIN 13.6 g/dl (14.0-17.9); LYMPHOCYTES # (AUTO) 0.3 X10'3 (1.1-4.8); LYMPHOCYTES % (AUTO) 5.9 % (21-51); MEAN CORPUSCULAR HEMOGLOBIN 30.8 PG (27.0-31.0); MEAN CORPUSCULAR HGB CONC 33.3 g/dL (33.0-36.5); MEAN CORPUSCULAR VOLUME 92.3 FL (78-98); MEAN PLATELET VOLUME 6.8 FL (7.4-10.4); MONOCYTES # (AUTO) 0.2 X10'3 (0-0.9); MONOCYTES % (AUTO) 4.1 % (2-12); NEUTROPHILS # (AUTO) 4.3 X10'3 (1.8-7.7); NEUTROPHILS % (AUTO) 89.8 % (42-75); PLATELET COUNT 159 X10'3 (140-440); RED BLOOD COUNT 4.41 X10'6 (4.70-6.10); WHITE BLOOD COUNT 4.8 X10'3 (4.5-11.0)
[2023-11-09 18:50] LABS: ALANINE AMINOTRANSFERASE 25 U/L (12-78); ALBUMIN 3.4 G/DL (3.4-5.0); ALBUMIN/GLOBULIN RATIO 0.9 (1.1-1.5); ALKALINE PHOSPHATASE 437 IU/L (46-116); ANION GAP 6 (8-16); ASPARTATE AMINO TRANSFERASE 17 U/L (10-37); BILIRUBIN,TOTAL 0.7 MG/DL (0.1-1.0); BLOOD UREA NITROGEN 15 MG/DL (7-18); BUN/CREATININE RATIO 13.8 (10.0-20.0); CALCIUM 8.4 MG/DL (8.5-10.1); CHLORIDE 105 MMOL/L (99-107); CREATININE 1.09 MG/DL (0.60-1.10); GLUCOSE 83 MG/DL (70-104); PRO BRAIN NATRIURETIC PEPTIDE 263 PG/ML (0-125); SODIUM 138 MMOL/L (135-145); TOTAL CARBON DIOXIDE 26.9 MMOL/L (24-32); TOTAL PROTEIN 7.1 G/DL (6.4-8.2); eCRCL 74 ML/MIN; eGFR 72 ML/MIN
[2023-11-09 21:08] LABS: MAGNESIUM 1.8 MG/DL (1.5-2.4)
[2023-11-09 23:30] VITALS: BP 116/74; PULSE 73; RESP 18; O2SAT 99
== END 2023-11-09 23:35 | disposition home or self-care (01) ==
LOC: ER 15:17
DX: K52.9 Noninfective gastroenteritis and colitis, unspecified (principal); E86.0 Dehydration; M79.604 Pain in right leg; E11.9 Type 2 diabetes mellitus without complications; Z79.899 Other long term (current) drug therapy; Z79.4 Long term (current) use of insulin
CPT/HCPCS: 36415; 71045; 73590; 80053; 82948; 83605; 83735; 83880; 84484; 85025; 93005; 93970; 96360; 96361; 99285; J7030

== ENCOUNTER 2024-02-26 00:27 | Emergency (ER) | payer BC ==
[~2024-02-26] VITALS: Ht 167.6 cm; Wt 63.7 kg
[2024-02-26 00:32] VITALS: TEMP 98.3
[2024-02-26] MEDS ORDERED: iohexol 300mg/ml 100ml inj. ONE (02:11)
[2024-02-26 02:15] LABS: ALBUMIN 2.7 G/DL (3.4-5.0); ANION GAP 6 (8-16); BLOOD UREA NITROGEN 13 MG/DL (7-18); BUN/CREATININE RATIO 14.3 (10.0-20.0); CALCIUM 8.2 MG/DL (8.5-10.1); CHLORIDE 103 MMOL/L (99-107); CREATININE 0.91 MG/DL (0.60-1.10); GLUCOSE 157 MG/DL (70-104); MAGNESIUM 1.8 MG/DL (1.5-2.4); POTASSIUM 3.7 MMOL/L (3.5-5.1); SODIUM 139 MMOL/L (135-145); TOTAL CARBON DIOXIDE 30.3 MMOL/L (24-32); eCRCL 88 ML/MIN; eGFR 88 ML/MIN
[2024-02-26 02:20] LABS: LYMPHOCYTES # (AUTO) 0.6 X10'3 (1.1-4.8); MONOCYTES # (AUTO) 0.5 X10'3 (0-0.9); NEUTROPHILS # (AUTO) 1.4 X10'3 (1.8-7.7); PLATELET COUNT 64 X10'3 (140-440); WHITE BLOOD COUNT 2.5 X10'3 (4.5-11.0)
[2024-02-26 02:22] LABS: BASOPHILS % (AUTO) 0.3 % (0-1); EOSINOPHILS % (AUTO) 1.5 % (0-6); HEMATOCRIT 30.3 % (42.0-52.0); HEMOGLOBIN 9.8 g/dl (14.0-17.9); LYMPHOCYTES % (AUTO) 23.2 % (21-51); MEAN CORPUSCULAR HGB CONC 32.2 g/dL (33.0-36.5); MEAN CORPUSCULAR VOLUME 90.2 FL (78-98); MEAN PLATELET VOLUME 7.7 FL (7.4-10.4); RED BLOOD COUNT 3.37 X10'6 (4.70-6.10); RED CELL DISTRIBUTION WIDTH 16.5 % (11.5-14.5)
[2024-02-26] MEDS: ketorolac trometh 15mg/ml vial 15 MG/ML ML IV ONE (02:30)
[2024-02-26] MEDS: acetaminophen 325mg tablet PO ONE ×2 (02:31→05:00)
[2024-02-26 03:21] LABS: TOTAL CELLS COUNTED 100
[2024-02-26 03:22] LABS: ANISOCYTOSIS 1+; PLATELET ESTIMATE DECREASED
[2024-02-26] MEDS ORDERED: HYDR-3965 PO (04:27)
[2024-02-26 05:04] VITALS: BP 97/55; PULSE 78; RESP 15; O2SAT 100
== END 2024-02-26 05:07 | disposition home or self-care (01) ==
LOC: ER 00:28
DX: R22.41 Localized swelling, mass and lump, right lower limb (principal)
CPT/HCPCS: 36415; 73701; 80048; 83735; 84145; 85007; 85025; 96374; 99285; J1885; Q9967

== ENCOUNTER 2024-04-03 11:00 | Emergency (ER) | payer BC ==
[~2024-04-03] VITALS: Ht 165.1 cm; Wt 59.1 kg
[2024-04-03 14:53] LABS: BASOPHILS % (AUTO) 0.2 % (0-1); EOSINOPHILS % (AUTO) 0.3 % (0-6); HEMATOCRIT 34.6 % (42.0-52.0); HEMOGLOBIN 11.2 g/dl (14.0-17.9); LYMPHOCYTES # (AUTO) 0.9 X10'3 (1.1-4.8); MEAN CORPUSCULAR HEMOGLOBIN 29.6 PG (27.0-31.0); MEAN CORPUSCULAR HGB CONC 32.3 g/dL (33.0-36.5); MEAN CORPUSCULAR VOLUME 91.5 FL (78-98); MEAN PLATELET VOLUME 6.6 FL (7.4-10.4); MONOCYTES # (AUTO) 0.8 X10'3 (0-0.9); MONOCYTES % (AUTO) 11.2 % (2-12); NEUTROPHILS % (AUTO) 74.3 % (42-75); PLATELET COUNT 259 X10'3 (140-440); RED BLOOD COUNT 3.78 X10'6 (4.70-6.10); WHITE BLOOD COUNT 6.8 X10'3 (4.5-11.0)
[2024-04-03] MEDS: cyclobenzaprine 10mg tablet PO ONE (14:54)
[2024-04-03] MEDS: ketorolac trometh 15mg/ml vial 15 MG/ML ML IM ONE (14:55)
[2024-04-03 15:06] LABS: ALANINE AMINOTRANSFERASE 20 U/L (12-78); ALBUMIN 3.1 G/DL (3.4-5.0); ALBUMIN/GLOBULIN RATIO 0.8 (1.1-1.5); ALKALINE PHOSPHATASE 111 IU/L (46-116); ANION GAP 5 (8-16); ASPARTATE AMINO TRANSFERASE 21 U/L (10-37); BILIRUBIN,TOTAL 0.5 MG/DL (0.1-1.0); BLOOD UREA NITROGEN 15 MG/DL (7-18); BUN/CREATININE RATIO 18.3 (10.0-20.0); CALCIUM 8.7 MG/DL (8.5-10.1); CHLORIDE 103 MMOL/L (99-107); CREATINE KINASE 337 U/L (39-308); CREATININE 0.82 MG/DL (0.60-1.10); GLUCOSE 135 MG/DL (70-104); POTASSIUM 3.2 MMOL/L (3.5-5.1); SODIUM 139 MMOL/L (135-145); TOTAL CARBON DIOXIDE 30.9 MMOL/L (24-32); TOTAL PROTEIN 7.2 G/DL (6.4-8.2); eCRCL 90 ML/MIN; eGFR > 90 ML/MIN
[2024-04-03 15:08] LABS: ANISOCYTOSIS 2+; ELLIPTOCYTES FEW; PLATELET ESTIMATE NORMAL; STOMATOCYTES FEW
[2024-04-03 15:09] LABS: TEAR DROP CELLS 1+
[2024-04-03] MEDS: normal saline 1000ml 1,000 ML IV ONE (16:27)
[2024-04-03] MEDS: potassium Cl 20 mEq SR tablet PO STA (16:31)
[2024-04-03] MEDS ORDERED: NAPR-996 PO (17:23)
[2024-04-03] MEDS ORDERED: METH-798 PO (17:23)
[2024-04-03 17:30] VITALS: BP 120/78; PULSE 96; RESP 15; TEMP 98; O2SAT 99
== END 2024-04-03 17:32 | disposition home or self-care (01) ==
LOC: ER 11:01
DX: M79.605 Pain in left leg (principal); M79.604 Pain in right leg; C25.9 Malignant neoplasm of pancreas, unspecified; Z79.899 Other long term (current) drug therapy; Z79.4 Long term (current) use of insulin
CPT/HCPCS: 36415; 80053; 82550; 85008; 85025; 96360; 96372; 99283; J1885; J7030

== ENCOUNTER 2024-12-16 14:54 | Inpatient (IN) | payer BC, MEDICAID ==
[~2024-12-16] VITALS: Ht 177.8 cm; Wt 83.0 kg
[2024-12-16] VITALS (12 sets, daily range): BP systolic 82–101; BP diastolic 57–73; PULSE 74–86; RESP 12–31; TEMP 97–98.2; O2SAT 100
[~2024-12-16 14:54] MED LIST changes: +METH-798 PO; +NAPR-1168 PO
[2024-12-16] MEDS ORDERED: pantoprazole 40mg IV 80 MG in normal saline 100ml IV soln 100 ML IV ONE ×2 (16:30→16:50)
[2024-12-16 16:39] LABS: MEAN PLATELET VOLUME 8.7 FL (7.4-10.4); RED CELL DISTRIBUTION WIDTH 18.6 % (11.5-14.5)
--- NOTE | 2024-12-16 16:46 | Physician Documentation ---
History of Present Illness ~ Chief Complaint: Mechanical Fall Stated Complaint: BLOODY STOOL Time Seen by MD: 16:39 Primary Medical Doctor: Allen MARISCAL Source: patient Mode of Arrival: EMS, Wheelchair Exam Limitations: other (The patient is a poor historian.) HPI Chief Complaint: Fall, blood per rectum Caveat: Patient is a poor historian Independent Historians: , paramedics History of Present Illness: Patient is a 49-year-old man appearing much older than stated age. Patient fell out of a chair at home. Patient denies any injury. Patient has been having bright red blood per rectum according to the paramedics. However when you ask the patient if he has bleeding he says he does not know. When asked what color his stool is he states it is black. He does not know how long this has been or when it began. Patient denies abdominal pain, denies chest pain, denies shortness a breath, denies any other associated symptoms. Review of systems: All systems were reviewed and are negative except for what is indicated in the history of present illness. Past Medical History: Pancreatic cancer, type 2 diabetes Past Surgical History: Unknown Social History: , no tobacco use, no alcohol use, no drug use Medications: Reviewed as documented Nursing Notes Allergies: Reviewed as documented in Nursing Notes Medication Reconciliation Allergies: Coded Allergies: No Known Allergies (Unverified , 04/03/24) Scheduled Empagliflozin (Jardiance), 1 TAB PO DAILY, (Reported) Insulin Aspart (Insulin Aspart Flexpen), 10 UNITS SQ AC Insulin Glargine,Hum.rec.anlog (Toujeo Max Solostar), 14 UNITS SQ QPM Methocarbamol (Methocarbamol), 1-2 TAB PO Q8H Naproxen (Naproxen), 1 TAB PO Q12H Semaglutide (Ozempic), 0.25 MG SQ Q7D, (Reported) Durable Medical Equipment [place], Insulin Disposable (Bd Ultra-Fine Pen Needle), SYR SUBCUT Q6H, (DME) Past Medical History Past Medical History: No Pertinent History, Diabetes Past Surgical History: no surgical history Alcohol Use: None Drug Use: none Lives with: Family Lives In: Home Occupation: employed Review of Systems All Other Systems at this time: Reviewed and Negative ROS Patient denies any other acute symptoms other than above. All other systems are negative Unable to obtain complete ROS: other (Poor historian or being uncooperative) Physical Exam Vital Signs: RN Vital Signs have been reviewed: Yes, Temperature: 98.3, Source: Oral, Heart Rate: 89, Respiratory Rate: 18, BP: 87/59, Pulse Oximetry: 99, Weight: 74.000 Oxygen Flow Rate: 0 Pulse Oximetry Reflects: adequate oxygenation Physical Exam General Appearance: ACUTELY AND CHRONICALLY ILL-APPEARING, EXTREMELY PALE HEENT: Normal OP, TRAVEL AND MUCOSA, PERRL, EOMI Neck: supple, normal ROM, trachea midline Pulmonary: No respiratory distress, CTA, BS equal Cardiac: RRR, no murmur, rub or gallop, GI: nondistended, soft, nontender, normal bowel sounds, no guarding, no rebound Rectal: DENTAL STOOL PRESENT, WHAT IS PRESENT IS BROWN IN COLOR, GUAIAC POSIT SUNITHA, CONTROLS APPROPRIATE. NO BRIGHT RED BLOOD. Extremities: normal ROM, 2+ BILATERAL LOWER EXTREMITY PITTING EDEMA, non-tender Skin: intact, PALE, warm, no rashes Neuro: AAOx3, speech is clear, no focal motor weakness Psych: normal affect, good eye contact, no apparent hallucination, normal speech Progress Results/Orders Results/Orders Orders - VICENTA RAE MD Cbc/Diff (12/16/24 16:28) Type And Screen (12/16/24 16:28) Chest,Single View (12/16/24 16:28) Monitor (12/16/24 16:28) Saline Lock (12/16/24 16:28) Straight Cath For Urine Sample (12/16/24 16:28) Man Diff (12/16/24 16:30) Pathology Review (12/16/24 16:30) Lrpc - Active Bleeding (12/16/24 16:46) * (B) Plasencia- Non Protocol * Q12H@07,19 (12/16/24 16:46) * Gastric/Insert Tube* ONCE (12/16/24 16:46) 2 Large Bore Ivs (12/16/24 16:46) Pantoprazole 40mg/Ns 100ml Bag (Protonix (12/16/24 21:00) Completed Orders - VICENTA RAE MD PTT (12/16/24 16:28) Pt Inr (12/16/24 16:28) Chest,Single View (12/16/24 16:28) Electrocardiogram (12/16/24 16:28) Nothing By Mouth (12/16/24 Dinner) CMP (12/16/24 16:28) Pantoprazole 40mg Iv (Protonix 40mg Iv) (12/16/24 16:50) Pantoprazole 40mg Iv (Protonix 40mg Iv) (12/16/24 16:55) Ua W/Microscopic, Cult If Ind (12/16/24 16:40) Medications Received in ER Medications (Trade) Dose Ordered Sig/Jose Luis Route PRN Reason Start Time Stop Time Status Last Admin Dose Admin (Protonix 40mg IV) 80 mg ONCE ONCE IV 12/16/24 16:55 12/16/24 16:56 DC 12/16/24 16:55 80 MG Vital Signs 12/16/24 12/16/24 12/16/24 12/16/24 15:38 15:51 16:31 16:45 Temp 98.3 Pulse 89 87 88 Resp 18 14 12 B/P (MAP) 87/59 92/64 (73) 85/59 (68) Pulse Ox 99 98 98 O2 Flow Rate 0 12/16/24 17:11 Pulse 88 Resp 12 B/P (MAP) 86/60 (69) Pulse Ox 98 Laboratory Tests Test 12/16/24 15:45 12/16/24 16:30 12/16/24 16:38 12/16/24 16:40 Glucometer 509 *H White Blood Count 2.6 L Red Blood Count 1.78 L Hemoglobin 4.9 *L Hematocrit 16.5 *L Mean Corpuscular Volume 92.8 Mean Corpuscular Hemoglobin 27.6 Mean Corpuscular Hemoglobin Concent 29.8 L Red Cell Distribution Width 18.6 H Platelet Count 106 L Mean Platelet Volume 8.7 Neutrophils (%) (Auto) 66.7 Lymphocytes (%) (Auto) 23.6 Monocytes (%) (Auto) 9.4 Eosinophils (%) (Auto) 0.2 Basophils (%) (Auto) 0.1 Neutrophils # (Auto) 1.7 L Lymphocytes # (Auto) 0.6 L Monocytes # (Auto) 0.2 Eosinophils # (Auto) 0.0 Basophils # (Auto) 0.0 CBC Comment Differential Total Cells Counted 100 Neutrophils % (Manual) 73.0 Lymphocytes % (Manual) 20.0 L Monocytes % (Manual) 7.0 Nucleated Red Blood Cells 2 H Platelet Estimate Decreased Red Blood Cell Morphology Perf Basophilic Stippling Anisocytosis 2+ Microcytosis 1+ Target Cells Few Prothrombin Time 13.3 H INR International Normalized Ratio 1.3 Activated Partial Thromboplast Time 26 Coagulation Comments Sodium Level 124 L Potassium Level 3.9 Chloride Level 94 L Carbon Dioxide Level 25.1 Anion Gap 5 L Blood Urea Nitrogen 17 Creatinine 0.70 Estimated GFR/1.73 m2 > 90 BUN/Creatinine Ratio 24.3 H Glucose Level 559 *H Calcium Level 7.6 L Total Bilirubin 0.2 Aspartate Amino Transf (AST/SGOT) 15 Alanine Aminotransferase (ALT/SGPT) 13 Alkaline Phosphatase 96 Total Protein 6.7 Albumin 1.9 L Globulin 4.8 H Albumin/Globulin Ratio 0.4 L Chemistry Comments Urine Specimen Description Urinal Urine Color Straw Urine Clarity Clear Urine pH 6.0 Urine Specific Pegram <=1.005 Urine Protein Negative Urine Glucose (UA) >=1000 H Urine Ketones 15 H Urine Occult Blood Trace-intact Urine Nitrite Negative Urine Bilirubin Negative Urine Urobilinogen 0.2 Urine Leukocyte Esterase Negative Urine RBC 3-10 Urine WBC 0-4 Urine Squamous Epithelial Cells Few Urine Bacteria Few Urine Yeast Few Urine Culture Indicated Not ind Volume Urine Centrifuged 10 ml Urine Comment Medical Decision Making Additional info obtained from: old records Findings Differential diagnosis includes but is not limited to: Upper GI bleed, lower GI bleed, peptic ulcer, gastric ulcer, AVM, EKG independent interpretation: Performed at 4:44 p.m.. Normal sinus rhythm, heart rate 90, normal axis, low voltage, normal ST segments Chest x-ray, single view, indication: Hypotensive Independent interpretation: Lungs are clear, Port-A-Cath right chest, normal mediastinum, normal cardiac silhouette Laboratory data independent interpretation: CBC: Cytopenia, WBC 2.6, hemoglobin 4.9, platelet count 106 CMP: Glucose 509 Coags: PTT elevated at 13.3, INR elevated 1.3, PTT normal 26 Urinalysis: Emergency department course/medical decision-making: Patient is a 49-year-old man with pancreatic cancer presents with a GI bleed. It is unclear if it is upper or lower. Patient is a poor historian. There are reports that he had bright red blood per rectum. The patient also reports that he has had black stool. He is unable to say when this began. Patient has a hemoglobin of 4.9 and has a blood pressure in the high 80s and low 90s. 1 L of normal saline IV bolus ordered. 2 units of packed red blood cells ordered. IV Protonix bolus and drip ordered. Patient's abdominal exam is unremarkable. There is no melena or bright red blood per examination here. Patient has not had any vomiting. NG tube ordered for diagnostics. Recommend admission to the ICU. Results treatment plan and need for admission discussed with the patient and family. Consultation/communications: 5:03 p.m.: Gastroenterology, Dr. Balderas consulted. 5:04 p.m.: ICU team notified of patient for evaluation and admission to the ICU Departure Time of Disposition: 17:44 Admitted to Inpatient Unit: to [facility] Admission Level of Care: Critcal Care Impression: Primary Impression: Severe anemia Additional Impressions: Pancytopenia Hyperglycemia Condition: Critical Education Educated: Patient, Family Educated regarding: diagnosis, treatment Critical Care Note Total Time (mins): 60 Critical Care Note Critical conditions addressed for impending deterioration include: cardiovascular, [place] [employer], metabolic, renal Associated risk factors involving deterioration include: bleeding, hypotension, dysrythmia, metabolic changes, dehydration, The very real possibility of a deterioration of this patient's condition required the highest level of my preparedness for sudden, emergent intervention. I provided critical care services, which included medication orders, frequent reevaluations of the patient's condition and response to treatment, ordering and reviewing test results, and discussing the case with necessary consultants. Critical care time was exclusive of necessary procedure time. The critical care time associated with the care of the patient was 60 minutes. Signature Scribe Signature: No scribe Attestation: No scribe VICENTA RAE MD Dec 16, 2024 16:46
--- NOTE | 2024-12-16 16:47 | ELECTROCARDIOGRAPH REPORT ---
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 Kings Rivera Measurements Intervals [place] Rate: 90 P: 42 NE: 169 QRS: 44 QRSD: 104 T: 46 QT: 377 QTc: 462 Interpretive Statements Sinus rhythm Low voltage, extremity and precordial leads Electronically Signed On 12-16-2024 18:16:[address] Kings Rivera Please click the below link to view image of tracing.
[2024-12-16 16:50] LABS: APTT 26 SECONDS (22-32); INR 1.3 INR
[2024-12-16 16:54] LABS: CREATININE 0.70 MG/DL (0.60-1.10); TOTAL CARBON DIOXIDE 25.1 MMOL/L (24-32); eCRCL 130 ML/MIN; eGFR > 90 ML/MIN
[2024-12-16 16:59] LABS: LEUKOCYTE ESTERASE ,URINE NEGATIVE (Neg); NITRITES, URINE NEGATIVE (Neg); OCCULT BLOOD,URINE TRACE-INTACT (Neg)
[2024-12-16 17:04] LABS: UA COLLECTION TYPE URINAL
[2024-12-16 17:07] LABS: SQUAMOUS EPITHELIAL CELL,UR FEW /LPF (FEW); YEAST FEW /HPF (NEGATIVE)
[2024-12-16] MEDS ORDERED: ondansetron/PF 4mg/2ml inj IV PRN (17:10)
[2024-12-16] MEDS ORDERED: magnesium hydroxide 30ml (MOM) UD suspension PO PRN (17:10)
[2024-12-16] MEDS ORDERED: normal saline 1000ml 1,000 ML IV SCH (17:10)
--- NOTE | 2024-12-16 17:14 | RADIOLOGY REPORT ---
EXAM: DI CHEST,SINGLE VIEW CLINICAL HISTORY: Hypotension TECHNIQUE: Single AP view of the chest WID: COMPARISON: DI CHEST,SINGLE VIEW on DOS: 11/09/23 FINDINGS: Lines and tubes: Right IJ chest port has been place with the tip projecting over the upper right atri um. Chest: The heart size and pulmonary vasculature is within normal limits. Limited depth of inspiration. No pleural effusion, pneumothorax, or consolidation. Linear bibasilar o pacities, greater on the left. Blunting of the left costophrenic angle. The osseous structures are grossly intact. Mild multilevel thoracic spondylosis. IMPRESSION: Limited depth of inspiration with mild rprn-gcazsuh-rbnf-right atelectasis. Blunting of the left costophrenic angle which could reflect a small pleural effusion. Placement of right IJ chest port with the tip projecting over the upper right atrium.
[2024-12-16 17:15] LABS: LYMPHOCYTES % (MANUAL) 20.0 % (21-51); MONOCYTES % (MANUAL) 7.0 % (2-12); NEUTROPHILS % (MANUAL) 73.0 % (42-75); NUCLEATED RED BLOOD CELLS 2 /100WBC (0-0); PLATELET ESTIMATE DECREASED
[2024-12-16] MEDS ORDERED: magnesium sulf-water 4G/100mL 100 ML IV PRN (17:20)
[2024-12-16] MEDS ORDERED: potassium Cl 40MEQ/270ML bag 270 ML IV PRN (17:20)
[2024-12-16] MEDS: normal saline 1000ml 1,000 ML IV SCH (17:20)
[2024-12-16] MEDS ORDERED: glucagon, human recombinant 1mg kit SUBCUT PRN (17:20)
[2024-12-16] MEDS ORDERED: magnesium sulf-water 2g/50mL 50 ML IV PRN (17:20)
[2024-12-16] MEDS ORDERED: DEXTROSE 15 GM of carb/4 tabs (each vial/BOTTLE has 4 tablets) PO PRN (17:20)
[2024-12-16] MEDS: K and/or MAG REPLACEMENT MC SCH (17:20)
[2024-12-16] MEDS ORDERED: magnesium Cl slow-release 64mg tablet PO PRN (17:20)
[2024-12-16] MEDS ORDERED: potassium Cl 20 mEq SR tablet PO PRN (17:20)
[2024-12-16 17:32] LABS: PHOSPHORUS 3.0 MG/DL (2.3-4.5)
[2024-12-16] MEDS: normal saline 1000ml 1,000 ML IV ONE (17:41)
--- NOTE | 2024-12-16 18:01 | CONSULTATION REPORT - RESIDENT ---
Consult Providers to CC Resident Creating Document: BOLIVAR GRISSOM RES History of Present Illness Primary Medical Doctor: Olamide primary care History of Present Illness entered by mistake. Allergies: Coded Allergies: No Known Allergies (Unverified , 04/03/24) Home Medications Home Medications Active Naproxen 500 Mg Tablet 1 Tab PO Q12H Methocarbamol 750 Mg Tablet 1-2 Tab PO Q8H Bd Ultra-Fine Pen Needle ([place], Insulin Disposable) 31 Gauge X 5/16" Dis.needle Syr SUBCUT Q6H Insulin Aspart Flexpen (Insulin Aspart) 100 Unit/Ml (3 Ml) Insuln.pen 10 Units SQ AC Toujeo Max Solostar (Insulin Glargine,Hum.rec.anlog) 300 Unit/Ml (3 Ml) Insuln.pen 14 Units SQ QPM Reported Ozempic (Semaglutide) 0.25 Mg/0.368 Ml Pen.injctr 0.25 Mg SQ Q7D Jardiance (Empagliflozin) 25 Mg Tablet 1 Tab PO DAILY Exam Vitals: Vital Signs Date Time Temp Pulse Resp B/P (MAP) Pulse Ox O2 Delivery O2 Flow Rate FiO2 12/16/24 17:45 98.2 86 15 89/61 12/16/24 17:31 99 0 Diagnostic Data Last Recorded Lab Results: 12/16/24 1630 12/16/24 1638 Diagnostic Data: Laboratory Tests Test 12/16/24 16:38 Prothrombin Time 13.3 SECONDS (9.0-12.0) H INR International Normalized Ratio 1.3 INR Activated Partial Thromboplast Time 26 SECONDS (22-32) D-Dimer Comment Coagulation Comments Coagulation Clinical Comments Date of Service: Dec 16, 2024 Billing Provider: ALLAN ELKINS MD, VENKATESH, KIM Dec 16, 2024 18:01
[2024-12-16] MEDS: LidoCAINE 2% Topical Jelly 11mL syringe (UROJET) TOP ONE (18:03)
--- NOTE | 2024-12-16 18:06 | HISTORY AND PHYSICAL-Residence ---
History & Physical Providers to CC Resident Creating Document: FORREST GRISSOM, KIM ~ History of Present Illness Primary Medical Doctor: Olamide primary care Reason for Admit\\Complaint: Upper GI bleed, severe symptomatic anemia, uncontrolled hyperglycemia History of Present Illness A 49-year-old frail, cachectic man (poor historian and he seems to be upset and not giving the full history), adopted child of with a past medical history of pancreatic cancer, type 2 diabetes mellitus, heart murmur came to the ER with chief complaints of melena, bleeding per rectum for the past couple of days(he is not quite sure of the duration). He endorses that he has been with jet black tarry stools for the past couple of days along with that few episodes of bleeding per rectum. He endorses that he fell out of the chair at home when he is trying to get up from chair. He endorses easy fatigability, decreased energy levels . He denied abdominal pain, abdominal distention, jaundice, loss of weight, loss of appetite, injury, shortness of breath, chest pain, palpitation. Discussed the code status with the patient and he wants to get chest compression/CPR but does not want intubation mechanical ventilation. Allergies: Coded Allergies: No Known Allergies (Unverified , 04/03/24) Home Medications Home Medications Active Naproxen 500 Mg Tablet 1 Tab PO Q12H Methocarbamol 750 Mg Tablet 1-2 Tab PO Q8H Bd Ultra-Fine Pen Needle ([place], Insulin Disposable) 31 Gauge X 5/16" Dis.needle Syr SUBCUT Q6H Insulin Aspart Flexpen (Insulin Aspart) 100 Unit/Ml (3 Ml) Insuln.pen 10 Units SQ AC Toujeo Max Solostar (Insulin Glargine,Hum.rec.anlog) 300 Unit/Ml (3 Ml) Insuln.pen 14 Units SQ QPM Reported Ozempic (Semaglutide) 0.25 Mg/0.368 Ml Pen.injctr 0.25 Mg SQ Q7D Jardiance (Empagliflozin) 25 Mg Tablet 1 Tab PO DAILY Past Medical History Past Medical History Pancreatic cancer Type 2 diabetes mellitus Heart murmur Past Surgical History Surgical History Comment Noncontributory Past Social History Smoking: Non-Smoker Alcohol Use: None Drug Use: None Lives with: Family Lives In: Home Occupation: employed ROS All Other Systems: Reviewed and Negative ROS Reviewed in full and negative except positive pertinent as in HPI Unable to obtain: other (Poor historian or being uncooperative) Exam Vitals: Vital Signs Date Time Temp Pulse Resp B/P (MAP) Pulse Ox O2 Delivery O2 Flow Rate FiO2 12/16/24 17:45 98.2 86 15 89/61 12/16/24 17:31 99 0 General: General Appearance: Alert, awake, oriented to time place person. Agitated and groggy. Malnourished and cachectic. Chronically ill-appearing. Extremely pale HEENT: Sunken eyeballs, loss of malar prominence of the cheek. Pale Neck: supple, normal ROM, trachea midline Pulmonary: Bilateral breath sounds are heard. No crepitation &wheeze. Chemotherapy port on right side of the chest. Cardiac: RRR, systolic murmur on aortic area , tricuspid, pulmonary and mitral area. No rub or gallop, GI: nondistended, soft, nontender, normal bowel sounds, no guarding, no rebound Rectal: Brown color stool, guaiac positive. No bright red. Extremities: normal ROM, bilateral pitting type of edema in lower extremity, non-tender Skin: intact, pale, warm, no rashes Neuro: AAOx3, speech is clear, no focal motor weakness Psych: normal affect, good eye contact, no apparent hallucination, normal speech Diagnostic Data Last Recorded Lab Results: 12/16/24 1630 12/16/24 1638 Diagnostic Data: Laboratory Tests Test 12/16/24 16:38 Prothrombin Time 13.3 SECONDS (9.0-12.0) H INR International Normalized Ratio 1.3 INR Activated Partial Thromboplast Time 26 SECONDS (22-32) Fibrinogen 293 MG/DL (177-424) D-Dimer Comment Coagulation Comments Coagulation Clinical Comments Advance Care Planning Advanced Care planning: Add on additional 30 min Additional Plan Upper GI bleed Symptomatic severe anemia Hypovolemic shock Pancytopenia WBC counts are 2.6, H&H is 4.9 and 16.5 Platelet count is 106 Ordered 4 units of LRPC on transfusing 1 unit right now On Protonix drip after 80 mg of stat dose Received IV normal saline of 1 L and then we are continuing 100 mL/hour normal saline ER physician Dr. Alva. Consulted Dr. Balderas, cut off [place] [employer] Hyponatremia Hypochloremia Sodium of 124 and put chloride of 94 and currently on 100 mL of normal saline We will continue to monitor CMP Type 2 diabetes mellitus Uncontrolled hyperglycemia Blood sugars are high in 500s Ordered A1c And currently on insulin hyperglycemic hypoglycemic protocol with glargine 60 units, Humalog insulin 6 SQPC and on Humalog high dose protocol We will continue to monitor blood sugars with a target of 140-180 Pancreatic cancer He is not on chemotherapy and he is not following any oncologist. Severe protein malnutrition Severe hypoalbuminemia Serum albumin is 1.9 On NPO in view of upper GI bleed Code status: Limited(no intubation and mechanical ventilation) Lines/tubes: Peripheral IV lines Diet: NPO Forrest Grissom ICU resident, PGY 2 Date of Service: Dec 16, 2024 Billing Provider: ALLAN ELKINS MD, VENKATESH, RUST Dec 16, 2024 18:06
[2024-12-16] MEDS: INSULIN LISPRO 100 UNIT/ML INSULN.PEN MULTI-DOSE SQ SCH ×2 (18:11→21:23)
[2024-12-16 18:41] LABS: OCCULT BLOOD STOOL POSITIVE (Neg)
[2024-12-16] MEDS ORDERED: FURO40TA4 PO (19:31)
[2024-12-16] MEDS ORDERED: POTA10CA95 PO (19:31)
[2024-12-16] MEDS ORDERED: ONDA-104 PO (19:31)
[2024-12-16] MEDS: pantoprazole 40MG/NS 100ML BAG 100 ML IV SCH (21:17)
[2024-12-16 21:19] LABS: MEAN PLATELET VOLUME 7.8 FL (7.4-10.4); RED CELL DISTRIBUTION WIDTH 18.8 % (11.5-14.5)
[2024-12-16] MEDS: insulin glargine (Lantus) pen - multi-dose SQ SCH (21:25)
[2024-12-17] VITALS (28 sets, daily range): BP systolic 75–98; BP diastolic 48–68; PULSE 64–87; RESP 12–30; TEMP 97.8; O2SAT 94–100
[2024-12-17 02:34] LABS: MEAN PLATELET VOLUME 7.9 FL (7.4-10.4); RED CELL DISTRIBUTION WIDTH 18.7 % (11.5-14.5)
[2024-12-17 02:51] LABS: CREATININE 0.48 MG/DL (0.60-1.10); PHOSPHORUS 2.2 MG/DL (2.3-4.5); TOTAL CARBON DIOXIDE 28.9 MMOL/L (24-32); eCRCL 173 ML/MIN; eGFR > 90 ML/MIN
[2024-12-17] MEDS: potassium Cl 40MEQ/1/2NS 520ml 520 ML IV ONE (03:28)
[2024-12-17] MEDS: potassium Cl 40MEQ/1/2NS 520ml 520 ML IV PRN (03:29)
[2024-12-17 09:05] LABS: MEAN PLATELET VOLUME 7.8 FL (7.4-10.4); RED CELL DISTRIBUTION WIDTH 19.4 % (11.5-14.5)
--- NOTE | 2024-12-17 09:40 | RADIOLOGY REPORT ---
EXAM: US Abdomen Complete CLINICAL INDICATION: PANCREATIC CANCER TECHNIQUE: Real-time ultrasound of the abdomen with image documentation. COMPARISON: No relevant prior studies available. FINDINGS: LIVER: Fatty infiltration of the liver. No intrahepatic bile duct dilation. GALLBLADDER: Negative Guy's sign was reported by the policy cancellation clerk. Gallbladder wall measures 4.1 mm thick. This may be secondary to reactive changes to the ascites. No gallstones. COMMON BILE DUCT: Unremarkable as visualized. No stones. No dilation. Common bile duct measures 0.35 cm in diameter. PANCREAS: Unremarkable as visualized. KIDNEYS: Right kidney measures up to 10.6 cm. Left kidney measures up to 11.6 cm. No stones. No hydronephrosis. SPLEEN: Unremarkable. No splenomegaly. AORTA: Unremarkable. No aneurysm. INFERIOR VENA CAVA: Unremarkable. FREE FLUID: Ascites. OTHER FINDINGS: Comparison MR MRI ABDOMEN on DOS: 07/26/23. . IMPRESSION: 1. Fatty infiltration of the liver. 2. Ascites. 3. Gallbladder wall measures 4.1 mm thick. This may be secondary to reactive changes to the ascites. HS:Y
--- NOTE | 2024-12-17 09:51 | PROGRESS NOTE ---
Subjective Subjective Patient is seen today. He is lying in bed in no apparent distress. No complaints of abdominal pain. Reason for visit: Pulmonary critical care follow-up Reviewed: Care Plan, H&P, Labs, Medications, Radiology Review of Systems Changes from previous H/P or p: No Changes Daily Progress Note Exam Vitals Vital Signs Date Time Temp Pulse Resp B/P (MAP) Pulse Ox O2 Delivery O2 Flow Rate FiO2 12/17/24 09:00 98.8 81 28 87/54 (65) 99 Room Air 12/16/24 18:25 0 Result Diagram: 12/17/24 0840 12/17/24 0153 Exam General Appearance: Alert, awake, oriented to time place person. Agitated and groggy. Malnourished and cachectic. Chronically ill-appearing. Extremely pale HEENT: Sunken eyeballs, loss of malar prominence of the cheek. Pale Neck: supple, normal ROM, trachea midline Pulmonary: Bilateral breath sounds are heard. No crepitation &wheeze. Chemotherapy port on right side of the chest. Cardiac: RRR, systolic murmur on aortic area , tricuspid, pulmonary and mitral area. No rub or gallop, GI: nondistended, soft, nontender, normal bowel sounds, no guarding, no rebound Rectal: Brown color stool, guaiac positive. No bright red. Extremities: normal ROM, bilateral pitting type of edema in lower extremity, non-tender Skin: intact, pale, warm, no rashes Neuro: AAOx3, speech is clear, no focal motor weakness Psych: normal affect, good eye contact, no apparent hallucination, normal speech Results Coagulation Studies Laboratory Tests Test 12/16/24 16:38 Prothrombin Time 13.3 SECONDS (9.0-12.0) H INR International Normalized Ratio 1.3 INR Activated Partial Thromboplast Time 26 SECONDS (22-32) Fibrinogen 293 MG/DL (177-424) D-Dimer 0.87 MG/L FEU (0-0.50) H D-Dimer Comment Coagulation Comments Coagulation Clinical Comments VTE VTE Risk Score VTE Risk Score Reference Ranges: Score 0-1 = Low Risk (Aggressive mobilization; early ambulation; no VTE prophylaxis required) Score 2: Moderate Risk (Intermittent/Pneumatic Compression Device OR Lovenox/Heparin/Coumadin) Score 3-4: High Risk (Intermittent/Pneumatic Compression Device AND Lovenox/Heparin/Coumadin) Score > or = 5: Highest Risk (Intermittent/Pneumatic Compression Device AND Lovenox/Heparin/Coumadin) Assessment/Plan Plan Advanced Care planning: Add on additional 30 min Additional Plan Upper GI bleed: Keep NPO. May have endoscopy today. Symptomatic severe anemia: Has received 2 units of packed red blood cells. Hemoglobin currently at 8.4. Hypovolemic shock: Blood pressure is still soft. May need additional fluid resuscitation. Pancytopenia: Could be due to recent chemotherapy. Hyponatremia : Slightly improved to 130. Hypochloremia Type 2 diabetes mellitus : Aiming to maintain serum glucose level of 140-180 mg/dL. Uncontrolled hyperglycemia: Serum glucose control improved. Pancreatic cancer: Recent chemotherapy was about one and half months ago according to the patient. He gets his chemotherapy treatments at [facility]. Severe protein malnutrition Severe hypoalbuminemia Serum albumin is 1.9 Code status: Limited(no intubation and mechanical ventilation) Lines/tubes: Peripheral IV lines Diet: NPO ALLAN ELKINS MD Dec 17, 2024 09:51
[2024-12-17] MEDS ORDERED: midazolam 1 mg/ML 2ml injection ONE ×2 (12:28→13:43)
[2024-12-17] MEDS ORDERED: fentaNYL/PF 50MCG/1 ML 2ML syringe ONE ×2 (12:28→13:43)
[2024-12-17] MEDS: normal saline 1000ML IV soln IVB ONE (12:34)
[2024-12-17] MEDS ORDERED: propofol inj 20 ML IV ONE (13:10)
[2024-12-17] MEDS ORDERED: LIDOcaine 1%/PF 5ML 10 MG/ML VIAL ONE (13:10)
[2024-12-17] MEDS: albumin (Human) 5% 250ml 250 ML IV ONE (14:34)
[2024-12-17 16:38] LABS: MEAN PLATELET VOLUME 8.1 FL (7.4-10.4); RED CELL DISTRIBUTION WIDTH 18.9 % (11.5-14.5)
--- NOTE | 2024-12-17 18:36 | CONSULTATION REPORT - RESIDENT ---
Consult Providers to CC Resident Creating Document: PRAVIN DIAZ RES CC: TITA RESENDIZ MD History of Present Illness Primary Medical Doctor: Olamide primary care Reason for Admit\\Complaint: Severe anemia, GI bleed History of Present Illness 51 Year old male with a PMH of pancreatic cancer, type 2 diabetes mellitus, was brought into the ER by EMS for melena, bleeding per rectum for the past couple of days. History is obtained from the EMR as patient is only stating few things. He stated that he was diagnosed with pancreatic cancer two years ago and he was on chemotherapy. Patient stated "they stopped chemotherapy", and that he was told that he can only for two weeks, four weeks ago. Patient stated he would like to undergo chemotherapy, but they stopped as it is of no use. He is not giving any history regarding melena or bleeding per rectum. Based on the EMR patient was having check black tarry stool for the past couple of days associated with bleeding per rectum. Did state he had type 2 diabetes mellitus. Stated he was adopted. Currently denies any abdominal pain. Stated that he would like to eat food Allergies: Coded Allergies: No Known Allergies (Unverified , 04/03/24) Home Medications Home Medications Active Bd Ultra-Fine Pen Needle ([place], Insulin Disposable) 31 Gauge X 5/16" Dis.needle Syr SUBCUT Q6H Insulin Aspart Flexpen (Insulin Aspart) 100 Unit/Ml (3 Ml) Insuln.pen 10 Units SQ AC Toujeo Max Solostar (Insulin Glargine,Hum.rec.anlog) 300 Unit/Ml (3 Ml) Insuln.pen 14 Units SQ QPM Reported Ondansetron HCl 8 Mg Tablet 1 Tab PO Q8H PRN Furosemide 40 Mg Tablet 1 Tab PO QAM Potassium Chloride* (Potassium Chloride) 10 Meq Capsule.sa 1 Cap PO DAILY Past Medical History Past Medical History Pancreatic cancer diagnosed for the past two years Type 2 diabetes mellitus Past Surgical History Surgical History Comment Patient refuses to answer Past Social History Social History Comment Denies smoking, alcohol, illicit drug use Lives in his home with his mom Uses walker for ambulation ROS ROS Unable to obtain as patient refuses to answer Exam Vitals: Vital Signs Date Time Temp Pulse Resp B/P (MAP) Pulse Ox O2 Delivery O2 Flow Rate FiO2 12/17/24 17:15 98.8 79 13 94/67 (76) 96 Room Air 12/17/24 14:10 3.0 General: General: Adult male, appears older than his stated age, very pale, thin, malnourished, not in apparent distress Head: Normocephalic with an atraumatic Eyes: Pupils- 3mm, reacting to light, conjunctiva- anicteric Nose and throat: No polyps, septum- normal, no mucosal ulcers Neck: Supple, no lymphadenopathy, no carotid bruit Chest-right chest port Respiratory: No use of accessory muscles of respiration, Bilateral normal vesiscular breath sounds heard. No wheeze, rhochi or creps Cardiac: S1-S2 heard, rythm regular, no gallop/murmur Abdomen: distended, percussion tympanic note no tenderness, no organomegaly, bowel sounds- heard Extremities: no clubbing, 2+ pitting pedal edema, no deformities, peripheral pulses- 2+ Skin: warm and dry, no rash, no purpura Neuro: No focal deficit, gross cranial nerve exam- normal Diagnostic Data Last Recorded Lab Results: 12/17/24 1554 12/17/24 0153 Diagnostic Data: Laboratory Tests Test 12/16/24 16:38 Prothrombin Time 13.3 SECONDS (9.0-12.0) H INR International Normalized Ratio 1.3 INR Activated Partial Thromboplast Time 26 SECONDS (22-32) Fibrinogen 293 MG/DL (177-424) D-Dimer 0.87 MG/L FEU (0-0.50) H D-Dimer Comment Coagulation Comments Coagulation Clinical Comments Additional Plan 51 Year old male with a PMH of pancreatic cancer, type 2 diabetes mellitus, was brought into the ER by EMS for melena, bleeding per rectum for the past couple of days. Patient was initially admitted in the ICU, had undergone two PRBC transfusion. Hb improved from 4-8. Undergone EGD on 12/17, and is moved to the PCU on 12/17 Upper GI bleed -currently on Protonix drip at 8 mg/hour, transition to 40 mg IV twice daily from tomorrow -EGD done on 12/17-by Dr. Balderas- nonbleeding gastric ulcer with no stigmata of bleeding, nonbleeding duodenal ulcer with adherent clot, biopsied, large amount of food in the stomach -repeat EGD in two days as per Dr. Balderas Severe symptomatic anemia -presented with hemoglobin of 4.8, which improved up to 7.9 after two PRBC transfusion -normocytic anemia, likely secondary to GI bleed -monitor H and H q.6 -plan for another PRBC transfusion if drops below seven or hemodynamically unstable -iron studies not done as patient already received transfusions Candidal esophagitis -EGD showed candidiasis esophagitis with no bleeding, cells for cytology obtained -started on IV fluconazole 400 mg from tomorrow f/b 200 mg once daily for next 10-14 days, can be transitioned to p.o. Hypovolemic shock -current blood pressures of 94/67 with map of 76 -currently on D5 half-normal saline at 100 cc/hour -patient does have signs of food low load which could be secondary to hypoalbuminemia- continue D5 for today and stop from tomorrow once he resumes diet Pancytopenia -be secondary to chemotherapy/ secondary to advanced pancreatic cancer -WBC 2.9, platelet 84 -monitor for infections and bleeding manifestations -monitor CBC daily -follow up on peripheral smear Pancreatic cancer -patient said that he is not on any treatment for the past two months, has not remember the stage of his cancer and does not remember when he had undergone last PET scan. Ascites Thickened gallbladder -ultrasound abdomen- ascites, gallbladder wall of 4.1 mm thick which could be secondary to reactive changes to the ascites -plan for therapeutic paracentesis on 12/19 Type 2 diabetes mellitus with A1c-11 -initially presented with glucose of 509, current blood glucose are in the range of 80s -continue Lantus 16 units HS, lispro 6 units t.i.d. and high-dose supplemental insulin Severe protein calorie malnutrition -IV thiamine and iv folate, can be transitioned to po -ensure en live t.i.d. Code Status: Limited, no intubation Line/tube: PIV, chest port DVT prophylaxis: SCD Nutrition: Full Liquid diet PT: Yes Prognosis: Guarded Disposition: Continue care in PCU, repeat EGD in two days on 12/19 or 12/20, follow up with Dr. Balderas regarding the repeat EGD Pravin Diaz MD IM PGY-3 resident Date of Service: Dec 17, 2024 Billing Provider: TITA RESENDIZ MD, HARIVARSHA, RES Dec 17, 2024 18:36
[2024-12-17] MEDS ORDERED: thiamine 100mg/ml 2ml inj. IM SCH (20:00)
[2024-12-17] MEDS ORDERED: thiamine 100mg/ml 2ml inj. IV SCH (20:37)
[2024-12-17] MEDS: thiamine 100mg/ml 2ml inj. IV SCH (20:56)
[2024-12-18] VITALS (7 sets, daily range): BP systolic 94–127; BP diastolic 61–95; PULSE 76–134; RESP 11–40; TEMP 97.3–100.4; O2SAT 95–98
[2024-12-18] MEDS: pantoprazole 40MG/NS 100ML BAG 100 ML IV ONE (00:34)
[2024-12-18 01:33] LABS: MEAN PLATELET VOLUME 8.1 FL (7.4-10.4); RED CELL DISTRIBUTION WIDTH 19.7 % (11.5-14.5)
[2024-12-18 01:50] LABS: CREATININE 0.41 MG/DL (0.60-1.10); TOTAL CARBON DIOXIDE 25.8 MMOL/L (24-32); eCRCL 223 ML/MIN; eGFR > 90 ML/MIN
[2024-12-18] MEDS: potassium Cl 20 mEq SR tablet PO PRN (03:11)
[2024-12-18 08:03] LABS: MEAN PLATELET VOLUME 8.4 FL (7.4-10.4); RED CELL DISTRIBUTION WIDTH 20.0 % (11.5-14.5)
[2024-12-18] MEDS: fluconazole/NS 400mg/200ml bag 200 ML IV ONE (08:41)
[2024-12-18] MEDS: folic acid 1mg/0.2ml inj IV SCH (08:42)
[2024-12-18] MEDS: lactose-reduced food (Ensure Enlive) - 237ml bottle PO SCH (08:43)
[2024-12-18 13:05] LABS: MEAN PLATELET VOLUME 8.3 FL (7.4-10.4); RED CELL DISTRIBUTION WIDTH 19.6 % (11.5-14.5)
--- NOTE | 2024-12-18 15:26 | PROGRESS NOTE- Residence ---
Progress Note - Resident Providers to CC Resident Creating Document: RE KISER, RES ~ Antibiotic Timeout Antibiotic Ordered?: No Subjective Patient is seen and examined today. Mom was at bedside. Patient denied any significant complaints and also had no abdominal pain. Patient is scheduled for an EGD and paracentesis tomorrow Objective Vital Signs Date Time Temp Pulse Resp B/P (MAP) Pulse Ox O2 Delivery O2 Flow Rate FiO2 12/18/24 08:00 11 98 Room Air 12/18/24 06:00 98.4 92 101/69 (80) 12/17/24 22:00 2.0 Result Diagram: 12/18/24 1226 12/18/24 0125 Awake , alert, and oriented x4, resting comfortably in the bed, in no acute distress HEENT: Atraumatic, normocephalic, EOMI, anicteric sclera ; pink conjunctiva, right chest port Neck: Trachea midline. Supple, full range of motion, no JVD Cardiac: Regular rhythm, regular rate with no murmurs all over the precordium. Respiratory: Equal breath sounds bilaterally, no tachypnea, no wheezing ,rub or rales, Chest wall is symmetric and without deformity. Gastrointestinal: Abdomen symmetric, non-distended, soft, non-tender, normal bowel sounds x4 quadrant, normoactive, no hepatosplenomegaly Musculoskeletal: 2+pedal edema, peripheral pulses felt Neurological: Speech is clear, alert, and oriented x 4. No motor or sensory deficit, deep tendon reflexes normal, cerebellar intact. Cranial nerves II-XII intact. Skin: Warm and dry Coagulation Studies Laboratory Tests Test 12/16/24 16:38 Prothrombin Time 13.3 SECONDS (9.0-12.0) H INR International Normalized Ratio 1.3 INR Activated Partial Thromboplast Time 26 SECONDS (22-32) Fibrinogen 293 MG/DL (177-424) D-Dimer 0.87 MG/L FEU (0-0.50) H D-Dimer Comment Coagulation Comments Coagulation Clinical Comments Advance Care Planning Advanced Care plannin - 30 Minutes Assessment Assessment 51 Year old male with a PMH of pancreatic cancer, type 2 diabetes mellitus, was brought into the ER by EMS for melena, bleeding per rectum for the past couple of days. Patient was initially admitted in the ICU, had undergone two PRBC transfusion. Hb improved from 4-8. Patient underwent EGD on 12/17, and is moved to the PCU on 12/17 Plan Plan 1. Upper GI Bleed (Melena and Hematochezia) Melena and rectal bleeding over several days; Hb 4.8 on arrival, received 2 units PRBC, now 7.9 EGD on 12/[address] Balderas: Non-bleeding gastric ulcer (no stigmata) Non-bleeding duodenal ulcer with adherent clot (biopsied) Large amount of food in stomach Plan: Currently on Protonix drip 8 mg/hr, transition to Pantoprazole 40 mg IV BID tomorrow Repeat EGD tomorrow Keep patient NPO after midnight 2.Severe Symptomatic Anemia Presentation: Hb 4.8 on admission, received 2 PRBCs; currently 10 Normocytic anemia likely due to GI blood loss Plan: Monitor H/H q6h Transfuse if Hb <7 or symptomatic/hemodynamic instability Iron studies deferred (already transfused) 3.Candidal Esophagitis, possibly secondary to chemotherapy (immunosuppression) Found incidentally on EGD; no bleeding Plan: Patient received IV fluconazole 400 mg once, followed by 200 mg daily x 1014 days Transition to PO fluconazole on discharge Cytology from EGD pending 4.Hypovolemia / Hypotension BP: 94/67, MAP - 76; patient pale, with pitting edema and ascites Initially on D5 NS @ 100 cc/hr, now discontinued Plan: Discontinued IV fluids today due to 2+ pitting edema and resumed oral intake Reassess blood pressure and volume status tomorrow Monitor renal function and urine output 5.Ascites and Abdominal Findings Ultrasound abdomen: Moderate ascites, gallbladder wall thickening (4.1 mm), fatty liver Abdominal exam: Distended, tympanic, non-tender Plan: Therapeutic paracentesis scheduled 12/19 Send fluid for cell count, albumin, total protein, culture, cytology Monitor for fever or signs of SBP Consider diuretics after paracentesis if patient remains volume overloaded based on blood pressures 6.Pancreatic Cancer (Advanced, Chemotherapy Stopped) Diagnosed 2 years ago; patient reports chemo was stopped 4 weeks ago due to futility Doesnt recall staging or most recent PET/CT Plan: Await duodenal biopsy pathology Continue supportive care: Ensure Enlive, nutrition optimization 7.Pancytopenia Likely secondary to cancer and prior chemotherapy WBC: 2.9 , Plt: 84K , Hb: 7.9 Plan: Daily CBC monitoring Monitor for bleeding, infection No need for G-CSF unless neutropenic with fever 8.Type 2 Diabetes Mellitus (Insulin-Dependent) Initial glucose: 509; now controlled in [id number] A1c: 11% Plan: Continue current insulin regimen Monitor glucose before meals and bedtime Assess for hypoglycemia especially with improving nutrition Current regimen: Lantus 16 units QHS Aspart 6 units TID with meals High-dose sliding scale 9.Protein-Calorie Malnutrition Very pale, thin, appears older than stated age; minimal oral intake Plan: Continue IV thiamine and folate, transition to PO on discharge Ensure Enlive TID Advance to regular diet as tolerated Nutrition is consulted Code status: DNR, no intubation Lines: Chest port, PIV DVT Prophylaxis: SCDs (no Lovenox/heparin due to platelet count) Nutrition: Full liquid diet until EGD tomorrow PT: Ordered Re Kiser MD Internal Medicine Resident, PGY-2 Date of Service: Dec 18, 2024 Billing Provider: TITA RESENDIZ MD, GAURAV, RES Dec 18, 2024 15:26
--- NOTE | 2024-12-18 18:38 | ELECTROCARDIOGRAPH REPORT ---
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 ARNOL Arzola Measurements Intervals [place] Rate: 133 P: 17 NE: 154 QRS: -25 QRSD: 103 T: 147 QT: 311 QTc: 463 Interpretive Statements Sinus tachycardia Probable left atrial enlargement Probable anteroseptal infarct, recent Electronically Signed On 12-19-2024 18:19:[address] ARNOL Arzola Please click the below link to view image of tracing.
[2024-12-18 19:10] LABS: MEAN PLATELET VOLUME 8.2 FL (7.4-10.4); RED CELL DISTRIBUTION WIDTH 20.0 % (11.5-14.5)
[2024-12-18] MEDS: mag hydrox/Alum hydrox/simeth 30ml oral suspension PO PRN (19:15)
[2024-12-18 19:23] LABS: APTT 29 SECONDS (22-32); INR 1.5 INR
[2024-12-18 19:27] LABS: CREATININE 0.62 MG/DL (0.60-1.10); TOTAL CARBON DIOXIDE 21.7 MMOL/L (24-32); eCRCL 147 ML/MIN; eGFR > 90 ML/MIN
[2024-12-18] MEDS: normal saline 1000ml 1,000 ML IV ONE (19:52)
--- NOTE | 2024-12-18 21:07 | RADIOLOGY REPORT ---
Exam: DI ABDOMEN,SINGLE VIEW(KUB) Indication: abdominal pain Comparison: None Technique: 2 radiographic views of the abdomen. Findings: Gas-filled segments of small and large bowel are noted throughout the abdomen without definite eviden ce of obstruction. No evidence of pneumoperitoneum. No abnormal calcifications noted. Nonobstructive bowel gas pattern noted. There is no definite evidence for pneumoperitoneum. No abnormal calcifications noted. Impression: 1. Nonobstructive bowel gas pattern noted.
[2024-12-19] VITALS (14 sets, daily range): BP systolic 92–127; BP diastolic 64–93; PULSE 72–104; RESP 11–30; TEMP 97.3–98; O2SAT 91–100
[2024-12-19] MEDS: dextrose 50%-water 50ml dispensing syringe IV PRN ×2 (02:53→09:11)
[2024-12-19] MEDS: fluconazole-Diflucan 200mg/NS 100 ML IV SCH (08:02)
[2024-12-19] MEDS ORDERED: midazolam 1 mg/ML 2ml injection ONE (10:28)
[2024-12-19] MEDS ORDERED: LIDOcaine 2% Viscous 15ml cup ONE (10:37)
[2024-12-19] MEDS: mag hydrox/Alum hydrox/simeth 30ml oral suspension PO ONE (14:06)
--- NOTE | 2024-12-19 14:46 | RADIOLOGY REPORT ---
EXAM: DI CHEST,SINGLE VIEW HISTORY: shortness of breath COMPARISON: DI CHEST,SINGLE VIEW on DOS: 12/16/24, DI CHEST,SINGLE VIEW on DOS: 11/09/23, DI CHEST,SING LE VIEW on DOS: 07/23/23, chest CT dated 07/25/2023. TECHNIQUE: Portable supine AP view of the chest was performed. FINDINGS: Right chest port-A-Cath is re-identified. Lung volumes are quite low. There are bilateral lung hazy infiltrates and effusions, fjdf-[id number]-axay-right, increased versus prior chest x-ray. No pneumothor ax. The heart is not enlarged. There is thoracic degenerative disc disease. No fractures are identif ied about the bony thorax. IMPRESSION: Low lung volumes with bilateral pulmonary infiltrates and effusions, nudw-cyorazb-joqg-right. These h ave increased compared with chest x-ray performed 3 days earlier.
[2024-12-19 15:20] LABS: MEAN PLATELET VOLUME 8.5 FL (7.4-10.4); RED CELL DISTRIBUTION WIDTH 20.2 % (11.5-14.5)
[2024-12-19 15:40] LABS: CREATININE 0.51 MG/DL (0.60-1.10); TOTAL CARBON DIOXIDE 23.4 MMOL/L (24-32); eCRCL 179 ML/MIN; eGFR > 90 ML/MIN
--- NOTE | 2024-12-19 16:09 | ELECTROCARDIOGRAPH REPORT ---
[facility] Test Date: 2024-12-19 Test Time: 16:07:31 Pat Name: JAMES LEGGETT Department: [facility] 3S Patient ID: 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 Reading MD: Dr. ARNOL Arzola Measurements Intervals [place] Rate: 85 P: 0 ND: 0 QRS: 1 QRSD: 95 T: 13 QT: 369 QTc: 439 Interpretive Statements Normal sinus rhythm. Low voltage, extremity leads Electronically Signed On 12-19-2024 18:20:[address] ARNOL Arzola Please click the below link to view image of tracing.
--- NOTE | 2024-12-19 16:42 | RADIOLOGY REPORT ---
CTA Chest with intravenous contrast INDICATION: shortness of breath COMPARISON: None TECHNIQUE: Multidetector spiral CTA of the chest was performed of the chest with intravenous contrast . PULMONARY ANGIOGRAPHY PROTOCOL was utilized using a bolus-tracking technique centered on the main p ulmonary artery. Axial, coronal and sagittal multiplanar and MIP reformats were performed. CONTRAST: Type of contrast: Omni 350 Contrast injected: 100 ml Radiation dose : Chest: CTDI volume is mGy. Dose-length product is mGy*cm The dose indicators for CT are the volume computed Tomography (CT) dose Index (CTDIvol) and the dose Length product (DLP), and are measured in units of mGy and mGy-cm, respectively. These indicators are not patient dose, but values generated from the CT scanner acquisition factors. The report includes radiation exposure data for exposures received during this examination. Findings: Limited by motion. Pulmonary artery: No large central pulmonary embolism. Small filling defects in right lower lobe segmental and subsegm ental branches. Small clot burden. No evidence of right heart strain. Lower neck: Right IJ port in place. Lungs: Bibasilar atelectasis and consolidation. Heart/Vascular Structures: Normal heart size. No pericardial effusion. Lymph Nodes: No adenopathy Pleura: Moderate bilateral pleural effusions. Musculoskeletal: No acute osseous abnormality. Soft tissues: Normal. Upper abdomen: Abdominal ascites. Possible mass in the mid abdomen partially imaged. IMPRESSION: 1. Limited by motion artifact. Suspect small filling defects in right lower lobe segmental branches. Left lower lobe segmental pulmonary emboli can not be excluded. Small clot burden. No evidence of right heart strain. Clinical correlation and continued follow-up is recommended. 2. Moderate bilateral pleural effusions with associated bibasilar atelectasis and consolidation. Clin ical correlation and continued follow-up is recommended. 3. Large amount of abdominal ascites. Possible mass in the mid abdomen partially imaged. Recommend dedicated imaging of the abdomen. HS:Y
[2024-12-19] MEDS: MULTIVIT-MIN/FERROUS GLUCONATE 9 MG/15 ML LIQUID PO SCH (17:06)
[2024-12-19] MEDS: PERFLUTREN PROTEIN-A MICROSPHR (Optison) 0.22 MG/ML 3ML VIAL IV ONE (17:20)
--- NOTE | 2024-12-19 18:20 | PROGRESS NOTE- Residence ---
Progress Note - Resident Providers to CC Resident Creating Document: DESTINY COLMENARES, RES ~ Antibiotic Timeout Antibiotic Ordered?: No Subjective The patient was seen and examined at bedside today. He underwent upper GI endoscopy by Dr. Balderas which showed multiple nonbleeding gastric and duodenal ulcers. He had an episode of shortness of breath and sinus tachycardia, CTA chest done which showed small burden pulmonary emboli. He is currently stable and on room air. Objective Vital Signs Date Time Temp Pulse Resp B/P (MAP) Pulse Ox O2 Delivery O2 Flow Rate FiO2 12/19/24 11:59 82 17 95/68 (77) 98 Room Air 12/19/24 11:30 6.0 12/19/24 10:49 99.3 Result Diagram: 12/19/24 1438 12/19/24 1438 Adult male, alert and oriented, cachectic, not in acute distress Head: Normocephalic with an atraumatic Eyes: Pupils- 3mm, reacting to light, conjunctiva- anicteric Nose and throat: No polyps, septum- normal, no mucosal ulcers Neck: Supple, no lymphadenopathy, no carotid bruit Respiratory: No use of accessory muscles of respiration, Bilateral normal vesicular breath sounds heard. No wheeze, rhochi or creps Cardiac: S1-S2 heard, rhythm regular, no gallop/murmur Abdomen: distended, no tenderness, no organomegaly, bowel sounds - heard Extremities: no clubbing, 2+ bilateral pedal edema, no deformities, peripheral pulses - 2+ Skin: warm and dry, no rash, purpura on bilateral arms Neuro: No focal deficit, gross cranial nerve exam - normal Coagulation Studies Laboratory Tests Test 12/16/24 16:38 12/18/24 19:01 Fibrinogen 293 MG/DL (177-424) D-Dimer 0.87 MG/L FEU (0-0.50) H D-Dimer Comment Coagulation Clinical Comments Prothrombin Time 15.1 SECONDS (9.0-12.0) H INR International Normalized Ratio 1.5 INR Activated Partial Thromboplast Time 29 SECONDS (22-32) Coagulation Comments Assessment Assessment A 51 Year old male with a PMH of pancreatic cancer, type 2 diabetes mellitus, was brought into the ER by EMS for melena, bleeding per rectum for the past couple of days. Patient was initially admitted in the ICU, had undergone two PRBC transfusion. Hb improved from 4-8. Patient underwent EGD on 12/17, and repeat EGD on 12/19/2024. Plan Plan 1. Upper GI Bleed (Melena and Hematochezia) Secondary to multiple gastric and duodenal ulcers Severe Symptomatic Anemia Repeat EGD today showed multiple nonbleeding gastric and duodenal ulcers. Discontinued Protonix drip. Started him on IV Protonix 40 mg b.i.d. Continue monitoring H&H. 2.Candidal Esophagitis, possibly secondary to chemotherapy (immunosuppression) Found incidentally on EGD; no bleeding Patient received IV fluconazole 400 mg once, followed by 200 mg daily x 1014 days Transition to PO fluconazole on discharge Cytology from EGD pending. 3. Pulmonary emboli CTA chest showed bilateral lower lobe pulmonary emboli with a small clot burden. Dr. Cabezas consulted for IVC filter. 4.Hypovolemia / Hypotension, improving Blood pressure stable. Hold IV fluids. Monitor renal function and urine output 5.Ascites and Abdominal Findings Ultrasound abdomen: Moderate ascites, gallbladder wall thickening (4.1 mm), fatty liver Abdominal exam: Distended, tympanic, non-tender Possible paracentesis tomorrow. Monitor for fever or signs of SBP Consider diuretics after paracentesis if patient remains volume overloaded based on blood pressures 6.Pancreatic Cancer (Advanced, Chemotherapy Stopped) Diagnosed 2 years ago; patient reports chemo was stopped 4 weeks ago due to futility Doesnt recall staging or most recent PET/CT Await duodenal biopsy pathology Continue supportive care: Advance diet as tolerated, Ensure Enlive, nutrition optimization 7.Pancytopenia Likely secondary to cancer and prior chemotherapy Daily CBC monitoring Monitor for bleeding, infection No need for G-CSF unless neutropenic with fever 8.Type 2 Diabetes Mellitus (Insulin-Dependent) Initial glucose: 509; now controlled in [id number] A1c: 11% Continue current insulin regimen Monitor glucose before meals and bedtime Assess for hypoglycemia especially with improving nutrition Current regimen: Lantus 16 units QHS Aspart 6 units TID with meals High-dose sliding scale 9.Protein-Calorie Malnutrition Very pale, thin, appears older than stated age; minimal oral intake Plan: Continue IV thiamine and folate, transition to PO on discharge Ensure Enlive TID Advance to regular diet as tolerated Nutrition is consulted Code status: DNR, no intubation Lines: Chest port, PIV DVT Prophylaxis: SCDs (no Lovenox/heparin due to platelet count) Nutrition: Clear liquid diet, advance as tolerated PT: Ordered Disposition: Continue care in surgical miller. Closely monitor vitals. Awaiting IVC filter. Monitor H&H. Destiny Colmenares MD Internal Medicine Resident, PGY-2 Date of Service: Dec 19, 2024 Billing Provider: TITA RESENDIZ MD,DESTINY ESTRELLA, RES Dec 19, 2024 18:20
[2024-12-19] MEDS: morphine 4 MG/ML inj SYRINge IV PRN (23:19)
[2024-12-20 04:58] LABS: RED CELL DISTRIBUTION WIDTH 19.1 % (11.5-14.5)
[2024-12-20 05:01] LABS: MEAN PLATELET VOLUME 8.0 FL (7.4-10.4)
[2024-12-20 05:27] LABS: CREATININE 0.57 MG/DL (0.60-1.10); TOTAL CARBON DIOXIDE 23.7 MMOL/L (24-32); eCRCL 160 ML/MIN; eGFR > 90 ML/MIN
[2024-12-20 06:35] VITALS: BP 109/77; PULSE 90; RESP 15; TEMP 97.9; O2SAT 98
[2024-12-20 07:59] LABS: BANDS% (MANUAL) 6.0 % (0-10); EOSINOPHILS % (MANUAL) 2.0 % (0-6); LYMPHOCYTES % (MANUAL) 23.0 % (21-51); MONOCYTES % (MANUAL) 8.0 % (2-12); NEUTROPHILS % (MANUAL) 61.0 % (42-75); PLATELET ESTIMATE DECREASED
--- NOTE | 2024-12-20 09:40 | CARDIOLOGY REPORT ---
APPROVED REPORT EXAM: Comprehensive 2D, Doppler, and color-flow Echocardiogram. 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 107.9 cm/s AoV VTI 15.1 cm AO Peak GR. 4.7 mmHg AO Mean GR. 2 mmHg LVOT VTI 12.91 cm LVOT Peak Phong. 78.5 cm/s CASEY(VTI)/BSA 2.73 cm2/m2 CASEY (VTI) 2.73 cm2 Mitral Valve MV E Velocity 59.6 cm/s MV Peak Gr. 2 mmHg MV DECEL TIME 168 ms MV A Velocity 83.4 cm/s MV PHT 48 ms E/A Ratio 0.7 MVA (PHT) 4.58 cm2 MV VMax63.8 cm/s Tricuspid Valve TR P. Velocity 312 cm/s RAP ESTIMATE 5 mmHg TR Peak Gr. 39 mmHg RVSP 44 mmHg LEFT VENTRICLE Normal LV size and function. Mild concentric hypertrophy. Overall LVEF is 65-70%. RIGHT VENTRICLE RV is normal size and function. Estimated PA systolic pressure of 44 mm of mercury ATRIA Left atrium is mildly dilated. Mobile interatrial septum - no flow detected. AORTIC VALVE Trileaflet AV appears mildly sclerotic without stenosis or insufficiency. MITRAL VALVE Normal MV annulus without stenosis. Mild regurgitation. TRICUSPID VALVE TV appears structurally normal with trace regurgitation. PULMONIC VALVE Normal PV without stenosis, physiologic insufficiency. GREAT VESSELS Aortic root is normal in size. PERICARDIUM Normal pericardium. Trivial effusion without hemodynamic compromise. Conclusion Overall LVEF is 65-70%. Normal LV size and function. Mild concentric hypertrophy. RV is normal size and function. Estimated PA systolic pressure of 44 mm of mercury Left atrium is mildly dilated. Mobile interatrial septum - no flow detected. Trileaflet AV appears mildly sclerotic without stenosis or insufficiency. Normal MV annulus without stenosis. Mild regurgitation. TV appears structurally normal with trace regurgitation. Normal PV without stenosis, physiologic insufficiency. Normal pericardium. Trivial effusion without hemodynamic compromise.
[2024-12-20] MEDS: INSULIN LISPRO 100 UNIT/ML INSULN.PEN MULTI-DOSE SQ SCH (09:54)
[2024-12-20 11:00] VITALS: BP 147/92; PULSE 95; RESP 14; TEMP 97.6; O2SAT 98
[2024-12-20] MEDS: DEXTROSE 15 GM of carb/4 tabs (each vial/BOTTLE has 4 tablets) PO PRN (17:21)
[2024-12-20 18:00] VITALS: BP 131/94; PULSE 102; RESP 20; TEMP 98.4; O2SAT 97
--- NOTE | 2024-12-20 18:01 | PROGRESS NOTE- Residence ---
Progress Note - Resident Providers to CC Resident Creating Document: RE KISER RES ~ Antibiotic Timeout Antibiotic Ordered?: No Subjective The patient was seen and examined at bedside today. No acute overnight symptoms Objective Vital Signs Date Time Temp Pulse Resp B/P (MAP) Pulse Ox O2 Delivery O2 Flow Rate FiO2 12/20/24 11:00 97.6 95 14 147/92 (110) 98 Room Air 12/19/24 11:30 6.0 Result Diagram: 12/20/2441212/20/24 041 Awake , alert, and oriented x4, resting comfortably in the bed, in no acute distress HEENT: Atraumatic, normocephalic, EOMI, anicteric sclera ; pink conjunctiva, right chest port Neck: Trachea midline. Supple, full range of motion, no JVD Cardiac: Regular rhythm, regular rate with no murmurs all over the precordium. Respiratory: Equal breath sounds bilaterally, no tachypnea, no wheezing ,rub or rales, Chest wall is symmetric and without deformity. Gastrointestinal: Abdomen symmetric, non-distended, soft, non-tender, normal bowel sounds x4 quadrant, normoactive, no hepatosplenomegaly Musculoskeletal: 2+pedal edema, peripheral pulses felt Neurological: Speech is clear, alert, and oriented x 4. No motor or sensory deficit, deep tendon reflexes normal, cerebellar intact. Cranial nerves II-XII intact. Skin: Warm and dry Coagulation Studies Laboratory Tests Test 12/16/24 16:38 12/18/24 19:01 Fibrinogen 293 MG/DL (177-424) D-Dimer 0.87 MG/L FEU (0-0.50) H D-Dimer Comment Coagulation Clinical Comments Prothrombin Time 15.1 SECONDS (9.0-12.0) H INR International Normalized Ratio 1.5 INR Activated Partial Thromboplast Time 29 SECONDS (22-32) Coagulation Comments Advance Care Planning Advanced Care plannin - 30 Minutes Assessment Assessment A 51 Year old male with a PMH of pancreatic cancer, type 2 diabetes mellitus, was brought into the ER by EMS for melena, bleeding per rectum for the past couple of days. Patient was initially admitted in the ICU, had undergone two PRBC transfusion. Hb improved from 4-8. Patient underwent EGD on 12/17, and repeat EGD on 12/19/2024. Plan Plan 1. Upper GI Bleed (Melena and Hematochezia) Secondary to multiple gastric and duodenal ulcers Severe Symptomatic Anemia Ascites and Abdominal Findings Pancreatic Cancer (Advanced, Chemotherapy Stopped) Hemoglobin stable at 9.2 Repeat EGD yesterday showed multiple nonbleeding gastric and duodenal ulcers. Continue IV Protonix 40 mg b.i.d. Continue monitoring H&H. And will likely benefit from paracentesis Goals of therapy and care should be discussed with family 2.Candidal Esophagitis, possibly secondary to chemotherapy (immunosuppression) Found incidentally on EGD; no bleeding Patient received IV fluconazole 400 mg once, followed by 200 mg daily x 1014 days Transition to PO fluconazole on discharge Cytology from EGD pending. Pulmonary emboli Hypovolemia / Hypotension, improving Pancytopenia Type 2 Diabetes Mellitus (Insulin-Dependent) Protein-Calorie Malnutrition Further management per primary team Code status: DNR, no intubation Lines: Chest port, PIV DVT Prophylaxis: SCDs (no Lovenox/heparin due to platelet count) Nutrition: Clear liquid diet, advance as tolerated PT: Ordered GI team signing off. Please reconsult if any acute changes or emergent situations Re Kiser MD Internal Medicine Resident, PGY-2 Date of Service: Dec 20, 2024 Billing Provider: AMINATA ABBOTT MD,RE, RES Dec 20, 2024 18:01
--- NOTE | 2024-12-20 18:38 | PROGRESS NOTE- Residence ---
Progress Note - Resident Providers to CC Resident Creating Document: DESTINY COLMENARES, RES ~ Antibiotic Timeout Antibiotic Ordered?: No Subjective The patient was seen and examined at bedside today. No acute overnight symptoms. He continues to be stable on room air. Goals of therapy discussed with the patient and his mother together with Dr. Valentin. They have decided for discharge home with hospice care. Possible discharge tomorrow. Objective Vital Signs Date Time Temp Pulse Resp B/P (MAP) Pulse Ox O2 Delivery O2 Flow Rate FiO2 12/20/24 18:11 16 12/20/24 11:00 97.6 95 147/92 (110) 98 Room Air 12/19/24 11:30 6.0 Result Diagram: 12/20/24 04112/20/24412 Adult male, alert and oriented, cachectic, not in acute distress Head: Normocephalic with an atraumatic Eyes: Pupils- 3mm, reacting to light, conjunctiva- anicteric Nose and throat: No polyps, septum- normal, no mucosal ulcers Neck: Supple, no lymphadenopathy, no carotid bruit Respiratory: No use of accessory muscles of respiration, diminished bibasilar breath sounds Cardiac: S1-S2 heard, rhythm regular, no gallop/murmur Abdomen: distended, mild epigastric tenderness, no organomegaly, bowel sounds - heard Extremities: no clubbing, 2+ bilateral pedal edema, no deformities, peripheral pulses - 2+ Skin: warm and dry, no rash, purpura on bilateral arms Neuro: No focal deficit, gross cranial nerve exam - normal Coagulation Studies Laboratory Tests Test 12/16/24 16:38 12/18/24 19:01 Fibrinogen 293 MG/DL (177-424) D-Dimer 0.87 MG/L FEU (0-0.50) H D-Dimer Comment Coagulation Clinical Comments Prothrombin Time 15.1 SECONDS (9.0-12.0) H INR International Normalized Ratio 1.5 INR Activated Partial Thromboplast Time 29 SECONDS (22-32) Coagulation Comments Assessment Assessment A 51 Year old male with a PMH of pancreatic cancer, type 2 diabetes mellitus, was brought into the ER by EMS for melena, bleeding per rectum for the past couple of days. Patient was initially admitted in the ICU, had undergone two PRBC transfusion. Hb improved from 4-8. Patient underwent EGD on 12/17, and repeat EGD on 12/19/2024. Plan Plan 1. Upper GI Bleed (Melena and Hematochezia) Secondary to multiple gastric and duodenal ulcers Severe Symptomatic Anemia Repeat EGD showed multiple nonbleeding gastric and duodenal ulcers. Continue IV Protonix 40 mg b.i.d. Continue monitoring H&H. 2.Candidal Esophagitis, possibly secondary to chemotherapy (immunosuppression) Found incidentally on EGD; no bleeding. Continue IV fluconazole 200 mg daily day 3. Transition to PO fluconazole on discharge to finish course of 14 days. Cytology from EGD pending. 3. Bilateral pulmonary emboli CTA chest showed bilateral lower lobe pulmonary emboli with a small clot burden. Patient chose hospice. No further management. 4.Hypovolemia / Hypotension, resolved Blood pressure stable. Hold IV fluids. Monitor renal function and urine output 5.Ascites and Abdominal Findings Ultrasound abdomen: Moderate ascites, gallbladder wall thickening (4.1 mm), fatty liver Abdominal exam: Distended, tympanic, non-tender Monitor for fever or signs of SBP No paracentesis as patient chose hospice. 6.Pancreatic Cancer (Advanced, Chemotherapy Stopped) Diagnosed 2 years ago; patient reports chemo was stopped 4 weeks ago due to futility Continue supportive care: Advance diet as tolerated, Ensure Enlive, nutrition optimization Hospice care 7.Pancytopenia Likely secondary to cancer and prior chemotherapy Monitor for bleeding, infection 8.Type 2 Diabetes Mellitus (Insulin-Dependent) Initial glucose: 509; now controlled in [id number] A1c: 11% Decreased insulin to 10 units lantus and 3 units fixed dose humalog for hypoglycemia. 9.Protein-Calorie Malnutrition Very pale, thin, appears older than stated age; minimal oral intake Continue IV thiamine and folate, transition to PO on discharge Ensure Enlive TID Advance to regular diet as tolerated Nutrition is consulted Code status: DNR, no intubation Lines: Chest port, PIV DVT Prophylaxis: SCDs (no Lovenox/heparin due to platelet count) Nutrition: Clear liquid diet, advance as tolerated PT: SNF Disposition: Continue care in [facility]. Possible discharge home with hospice care tomorrow. Destiny Colmenares MD Internal Medicine Resident, PGY-2 Date of Service: Dec 20, 2024 Billing Provider: TITA VALENTIN MD,DESTINY ESTRELLA, RES Dec 20, 2024 18:38
[2024-12-20 20:30] VITALS: RESP 18
[2024-12-20] MEDS: insulin glargine (Lantus) pen - multi-dose SQ SCH (21:00)
[2024-12-20 22:00] VITALS: BP 137/97; PULSE 97; RESP 15; TEMP 97.8; O2SAT 99
[2024-12-21 04:58] LABS: MEAN PLATELET VOLUME 7.5 FL (7.4-10.4); RED CELL DISTRIBUTION WIDTH 19.3 % (11.5-14.5)
[2024-12-21 05:21] LABS: CREATININE 0.41 MG/DL (0.60-1.10); TOTAL CARBON DIOXIDE 22.6 MMOL/L (24-32); eCRCL 223 ML/MIN; eGFR > 90 ML/MIN
[2024-12-21 06:56] VITALS: BP 144/87; PULSE 85; RESP 15; TEMP 98; O2SAT 96
[2024-12-21 10:00] VITALS: BP 135/93; PULSE 89; RESP 17; TEMP 98.3; O2SAT 98
--- NOTE | 2024-12-21 10:00 | PATHOLOGY REPORT ---
[facility] [address] [place] [address] NON-REPRODUCTION PRODUCTION MANAGER CYTOLOGY REPORT CaseNumber: [id number] Surgeon:Susana West M.D. CLINICAL INFORMATION CLINICAL INFORMATION: Bloody stool. R/O Candidal esophagitis. DIAGNOSIS DIAGNOSIS: A.STOMACH, ANTRUM; BIOPSY - NORMAL ANTRAL-TYPE GASTRIC MUCOSA. - NEGATIVE FOR INTESTINAL METAPLASIA. - NEGATIVE FOR H. PYLORI (CONFIRMED WITH IMMUNOSTAIN). DIAGNOSIS: B.ESOPHAGUS; BRUSHING - CONSISTENT WITH CANDIDIASIS ESOPHAGITIS. - FUNGAL FORMS IDENTIFIED ON GMS SPECIAL STAIN. MICROSCOPIC DESCRIPTION A. STOMACH, ANTRUM MICROSCOPIC DESCRIPTION: Reviewed is 1 H&E stained slide showing multiple levels of gastric antral-ty pe mucosa. I see no significant increase in acute or chronic inflammation. There is no evidence of dysplasia, intestinal metaplasia (confirmed with alcian blue), or Helicobacter pylori (confirmed with immunostain). B. ESOPHAGUS MICROSCOPIC DESCRIPTION: One H&E stained slide is examined. It shows exfoliated squamous cells interm ixed with rare yeast-like forms. A double cytospin slide shows similar findings. The background shows sparse mixed inflammation. A GMS special stain confirms the presence of yeast and hyphal fungal orga nisms. GROSS DESCRIPTION A. STOMACH, ANTRUM GROSS DESCRIPTION: Received in a container of formalin labeled with the patient's name, number, and " antrum BX" are 2 pieces of murphy tissue 0.1 and 0.2 cm submitted entirely as A1. The time at which the specimen was removed was 1352. The time at which the specimen was placed in formalin was 1354. B. ESOPHAGUS GROSS DESCRIPTION: Received labeled with the patient's name, number, and "esophagus brushing" is a 10 mL bottle of clear cytostat red. One double cytospin slide and one cell block are prepared. The cell block is submitted as B1. The time at which the specimen is removed is 1353. The time at which the specimen is placed in formalin is 1353. (cs) Electronically signed by: Mingo Gonzalez, 12/21/2024 9:28:00 AM
[2024-12-21] MEDS ORDERED: PANT-47 PO (12:05)
--- NOTE | 2024-12-21 14:51 | PATHOLOGY REPORT ---
[facility] [address] [place] [address] SURGICAL PATHOLOGY REPORT CaseNumber: [id number] Surgeon:Susana West M.D. CLINICAL INFORMATION CLINICAL INFORMATION: Melena. DIAGNOSIS DIAGNOSIS: GASTRIC ANTRUM, BIOPSIES X 2 - NO SIGNIFICANT INFLAMMATION, EDEMA, OR VASCULAR CONGESTION - NO INTESTINAL METAPLASIA BY PAS STAINING - NO DYSPLASIA OR MALIGNANCY - NO H. PYLORI ORGANISMS ARE HIGHLIGHTED BY IMMUNOHISTOCHEMISTRY MICROSCOPIC DESCRIPTION MICROSCOPIC DESCRIPTION: Reviewed is a single H&E-stained slide showing serial sections and levels of fragments of gastric antral type mucosa. There is no significant inflammation, edema, or vascular co ngestion. There is no intestinal metaplasia by PAS staining. There are no dysplastic or neoplastic fe atures. Also, no H. pylori organisms are highlighted by immunohistochemistry. GROSS DESCRIPTION GROSS DESCRIPTION: Received in a container of formalin labeled with the patients name, number, and "a ntrum BX" are 2 pieces of murphy tissue 0.2 and 0.5 x 0.3 x 0.1 cm. The specimen is entirely submitted a s A1. The time at which the specimen was removed was 1039. The time at which the specimen was placed in formalin was 1039. Electronically signed by: Roberto De La Torre M.D. 12/21/2024 2:10:00 PM
--- NOTE | 2024-12-21 22:52 | DISCHARGE SUMMARY-Residence ---
Discharge Summary Providers to CC Resident Creating Document: NIMESH COLMENARES SAMEER, RES ~ Discharge Summary Admission Diagnosis: SEVERE SYMPTOMATIC ANEMIA,UPPER GI BLEED,HYPOVOLEMIC SHOCK Hospital Course DATE OF ADMISSION: DATE OF DISCHARGE: Condition on DC: Stable Discharge Summary: Laboratory Tests Test 12/20/24 04:13 12/20/24 07:51 12/20/24 12:19 12/20/24 17:16 White Blood Count 2.7 X10'3 Red Blood Count 3.44 X10'6 Hemoglobin 9.2 g/dl Hematocrit 29.3 % Mean Corpuscular Volume 85.3 FL Mean Corpuscular Hemoglobin 26.7 PG Mean Corpuscular Hemoglobin Concent 31.3 g/dL Red Cell Distribution Width 19.1 % Platelet Count 73 X10'3 Mean Platelet Volume 8.0 FL Neutrophils (%) (Auto) 66.2 % Lymphocytes (%) (Auto) 20.8 % Monocytes (%) (Auto) 11.7 % Eosinophils (%) (Auto) 1.0 % Basophils (%) (Auto) 0.3 % Neutrophils # (Auto) 1.8 X10'3 Lymphocytes # (Auto) 0.6 X10'3 Monocytes # (Auto) 0.3 X10'3 Eosinophils # (Auto) 0.0 X10'3 Basophils # (Auto) 0.0 X10'3 CBC Comment Differential Total Cells Counted 100 Neutrophils % (Manual) 61.0 % Band Neutrophils % 6.0 % Lymphocytes % (Manual) 23.0 % Monocytes % (Manual) 8.0 % Eosinophils % (Manual) 2.0 % Platelet Estimate Decreased Red Blood Cell Morphology Perf Hypochromasia 1+ Basophilic Stippling Anisocytosis 2+ [place] Cells Few Sodium Level 134 MMOL/L Potassium Level 4.1 MMOL/L Chloride Level 104 MMOL/L Carbon Dioxide Level 23.7 MMOL/L Anion Gap 6 Blood Urea Nitrogen 16 MG/DL Creatinine 0.57 MG/DL Estimated GFR/1.73 m2 > 90 ML/MIN BUN/Creatinine Ratio 28.1 Glucose Level 141 MG/DL Calcium Level 7.4 MG/DL Magnesium Level 1.8 MG/DL Total Bilirubin 0.3 MG/DL Aspartate Amino Transf (AST/SGOT) 15 U/L Alanine Aminotransferase (ALT/SGPT) 14 U/L Alkaline Phosphatase 73 IU/L Total Protein 5.7 G/DL Albumin 1.6 G/DL Globulin 4.1 G/DL Albumin/Globulin Ratio 0.4 Chemistry Comments Glucometer 94 mg/dl 91 mg/dl 55 mg/dl Test 12/20/24 17:38 12/20/24 18:04 12/20/24 18:31 12/20/24 21:16 Glucometer 61 mg/dl 72 mg/dl 93 mg/dl 89 mg/dl Test 12/21/24 04:42 12/21/24 05:31 12/21/24 07:31 12/21/24 12:29 White Blood Count 5.4 X10'3 Red Blood Count 3.56 X10'6 Hemoglobin 9.7 g/dl Hematocrit 30.9 % Mean Corpuscular Volume 86.8 FL Mean Corpuscular Hemoglobin 27.2 PG Mean Corpuscular Hemoglobin Concent 31.3 g/dL Red Cell Distribution Width 19.3 % Platelet Count 138 X10'3 Mean Platelet Volume 7.5 FL Neutrophils (%) (Auto) 80.2 % Lymphocytes (%) (Auto) 10.1 % Monocytes (%) (Auto) 9.5 % Eosinophils (%) (Auto) 0.2 % Basophils (%) (Auto) 0 % Neutrophils # (Auto) 4.4 X10'3 Lymphocytes # (Auto) 0.6 X10'3 Monocytes # (Auto) 0.5 X10'3 Eosinophils # (Auto) 0.0 X10'3 Basophils # (Auto) 0.0 X10'3 CBC Comment Sodium Level 130 MMOL/L Potassium Level 4.0 MMOL/L Chloride Level 102 MMOL/L Carbon Dioxide Level 22.6 MMOL/L Anion Gap 5 Blood Urea Nitrogen 15 MG/DL Creatinine 0.41 MG/DL Estimated GFR/1.73 m2 > 90 ML/MIN BUN/Creatinine Ratio 36.6 Glucose Level 49 MG/DL Calcium Level 7.6 MG/DL Magnesium Level 1.8 MG/DL Total Bilirubin 0.3 MG/DL Aspartate Amino Transf (AST/SGOT) 21 U/L Alanine Aminotransferase (ALT/SGPT) 13 U/L Alkaline Phosphatase 83 IU/L Total Protein 6.1 G/DL Albumin 1.6 G/DL Globulin 4.5 G/DL Albumin/Globulin Ratio 0.4 Chemistry Comments Glucometer 99 mg/dl 113 mg/dl 102 mg/dl Date of Service: Dec 21, 2024 Billing Provider: TITA RESENDIZ MD,NIMESH ESTRELLA, RES Dec 21, 2024 22:52
== END 2024-12-21 13:01 | disposition hospice, home (50) | DRG 241 ==
LOC: ER 14:55 → ED HOLD 17:17 → CICU 2S 20:10 → PCU 3S 12-17 17:57 → SUR 3N 12-19 16:58
PROVIDERS: ADMIT Internal Medicine Critical Care Medicine; ATTEND Internal Medicine Critical Care Medicine
PROC: 30233N1 Transfusion of Nonautologous Red Blood Cells into Peripheral Vein, Percutaneous Approach (ICD-10-PCS; 2024-12-16)
PROC: 0DB78ZX Excision of Stomach, Pylorus, Via Natural or Artificial Opening Endoscopic, Diagnostic (ICD-10-PCS; 2024-12-17)
PROC: 0DB68ZX Excision of Stomach, Via Natural or Artificial Opening Endoscopic, Diagnostic (ICD-10-PCS; principal; 2024-12-17 13:30)
PROC: 0DJ08ZZ Inspection of Upper Intestinal Tract, Via Natural or Artificial Opening Endoscopic (ICD-10-PCS; 2024-12-19)
PROC: B32T1ZZ Computerized Tomography (CT Scan) of Left Pulmonary Artery using Low Osmolar Contrast (ICD-10-PCS; 2024-12-19)
PROC: B3201ZZ Computerized Tomography (CT Scan) of Thoracic Aorta using Low Osmolar Contrast (ICD-10-PCS; 2024-12-19)
PROC: B32S1ZZ Computerized Tomography (CT Scan) of Right Pulmonary Artery using Low Osmolar Contrast (ICD-10-PCS; 2024-12-19)
DX: K25.4 Chronic or unspecified gastric ulcer with hemorrhage (principal); R57.1 Hypovolemic shock; I26.99 Other pulmonary embolism without acute cor pulmonale; E43 Unspecified severe protein-calorie malnutrition; D61.810 Antineoplastic chemotherapy induced pancytopenia; B37.81 Candidal esophagitis; R18.8 Other ascites; K26.4 Chronic or unspecified duodenal ulcer with hemorrhage; E11.65 Type 2 diabetes mellitus with hyperglycemia; C25.7 Malignant neoplasm of other parts of pancreas; E87.8 Other disorders of electrolyte and fluid balance, not elsewhere classified; E87.1 Hypo-osmolality and hyponatremia; T45.1X5A Adverse effect of antineoplastic and immunosuppressive drugs, initial encounter; Z68.26 Body mass index [BMI] 26.0-26.9, adult; Y92.89 Other specified places as the place of occurrence of the external cause
CPT/HCPCS: 36415; 36430; 43235; 43239; 43762; 71045; 71275; 74018; 76700; 80048; 80053; 81001; 82140; 82272; 82948; 83036; 83605; 83690; 83735; 84100; 84484; 85007; 85025; 85027; 85379; 85384; 85610; 85730; 86885; 86900; 86901; 86920; 87081; 93005; 93306; 94799; 96374; 99291; A4314; A4615; A4620; A5200; A6212; A6213; C1758; G0378; J1450; J1815; J2250; J2270; J2470; J2704; J3010; J3411; J3480; J3490; J7030; J7040; J7042; J7050; P9016; P9045; Q9967